=== PATIENT | male | born 1960 | race Caucasian/White ===

== ENCOUNTER 2018-12-12 11:49 | Inpatient (IN) | payer OTHER ==
[2018-12-12 13:02] VITALS: BMI 31.0
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
[2018-12-12] MEDS ORDERED: MAG HYDROX/AL HYDROX/SIMETH 30 ML UNIT-DOSE CUP PO PRN (15:06)
[2018-12-12] MEDS ORDERED: MENTHOL/PHENOL 1 EACH UD MM PRN (15:06)
[2018-12-12] MEDS ORDERED: IBUPROFEN 400 MG TABLET (FP) PO PRN (15:06)
[2018-12-12] MEDS ORDERED: BISMUTH SUBSALICYLATE 524 MG/30 ML UD PO PRN (15:06)
[2018-12-12] MEDS ORDERED: LORazepam 1 MG TABLET PO PRN (15:06)
[2018-12-12] MEDS ORDERED: MAGNESIUM HYDROX 2400MG/30ML ORAL SUSPENSION 30 ML CUP PO PRN (15:06)
[2018-12-12] MEDS ORDERED: guaiFENesin 200 MG/10 ML 10 ML UNIT-DOSE CUPS PO PRN (15:06)
[2018-12-12] MEDS ORDERED: MAGNESIUM CITRATE 300 ML BOTTLE PO PRN (15:06)
[2018-12-12] MEDS: POLYMYXIN B SULFATE/TMP 10 ML OPHTHALMIC SOLUTION OD SCH ×3 (16:00→23:00)
[2018-12-12] MEDS: GABAPENTIN 300 MG CAPSULE (FP) PO SCH ×2 (17:39→21:37)
[2018-12-12] MEDS: PHENYTOIN NA EXTENDED 100 MG CAPSULE (FP) PO SCH ×2 (17:39→21:37)
[2018-12-12] MEDS: LORazepam 2 MG TABLET PO SCH ×2 (17:40→23:01)
[2018-12-12] MEDS: NICOTINE 21 MG/24 HOURS TOPICAL PATCH TD SCH (17:42)
[2018-12-12] MEDS: NAPROXEN 500 MG TABLET (FP) PO SCH (21:37)
[2018-12-12] MEDS: THIAMINE HCL 100 MG TABLET (FP) PO SCH (21:37)
[2018-12-13] MEDS: POLYMYXIN B SULFATE/TMP 10 ML OPHTHALMIC SOLUTION OD SCH ×8 (01:37→22:08)
[2018-12-13] MEDS: PHENYTOIN NA EXTENDED 100 MG CAPSULE (FP) PO SCH ×3 (05:08→22:07)
[2018-12-13] MEDS: LORazepam 2 MG TABLET PO SCH ×2 (05:08→10:37)
[2018-12-13] MEDS: GABAPENTIN 300 MG CAPSULE (FP) PO SCH ×3 (05:08→22:07)
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
[2018-12-13] MEDS: NICOTINE 21 MG/24 HOURS TOPICAL PATCH TD SCH (10:37)
[2018-12-13] MEDS: NAPROXEN 500 MG TABLET (FP) PO SCH ×2 (10:38→22:07)
[2018-12-13] MEDS: PRENATAL VITAMINS W/ FOLIC ACID TABLET (FP) PO SCH (10:38)
[2018-12-13] MEDS: PATIENT'S OWN MEDICATION (NON-FORMULARY) (Azithromycin [Azithromycin] 250 MG) PO SCH (10:38)
[2018-12-13 11:10] LABS: HEMATOCRIT 40.4 % (35.4-49); MCH 33.8 pg (25.7-33.7); MCHC 34.6 g/dl (32.0-35.9); MEAN CELL VOLUME 97.5 fl (80-96); MEAN PLT VOLUME 8.8 fl (7.5-11.1); PLATELET COUNT 228 K/MM3 (134-434); RBC 4.15 M/mm3 (4.00-5.60); RDW 14.5 % (11.9-15.9); WHITE BLOOD COUNT 6.1 K/mm3 (4.0-10.0)
[2018-12-13 11:27] LABS: ALBUMIN 3.7 g/dl (3.4-5.0); ALK PHOS 94 U/L (45-117); ANION GAP 7 MMOL/L (8-16); BILIRUBIN,TOTAL 0.6 mg/dL (0.2-1); BLOOD UREA NITROGEN 19 mg/dL (7-18); CALCIUM 9.1 mg/dL (8.5-10.1); CHLORIDE 109 mmol/L (98-107); CO2 24 mmol/L (21-32); GLUCOSE,RANDOM 122 mg/dL (74-106); POTASSIUM 4.2 mmol/L (3.5-5.1); SGOT/AST 39 U/L (15-37); SGPT/ALT 45 U/L (13-61); SODIUM 140 mmol/L (136-145); TOT PROT 7.2 g/dl (6.4-8.2)
--- NOTE | 2018-12-13 12:21 | PN ---
S CIWA - CIWA Score Nausea/Vomitin Muscle Tremors: 2 Anxiety: 2 Agitation: 2 Paroxysmal Sweats: 1-Minimal Palms Moist Orientation: 0-Oriented Tacttile Disturbances: 1-Very Mild Itch/Numbness Auditory Disturbances: 1-Very Mild Visual Disturbances: 0-None Headache: 2-Mild CIWA-Ar Total Score: 13 BHS Progress Note (SOAP) Subjective: alert,irritable,tremor,pain,pain in the body Objective: 12/13/18 12:20 Vital Signs Temperature 97.2 F L 12/13/18 09:54 Pulse Rate 75 12/13/18 09:54 Respiratory Rate 20 12/13/18 09:54 Blood Pressure 125/73 12/13/18 09:54 O2 Sat by Pulse Oximetry (%) 12/13/18 12:20 Laboratory Last Values WBC 6.1 K/mm3 (4.0-10.0) 12/13/18 06:30 RBC 4.15 M/mm3 (4.00-5.60) 12/13/18 06:30 Hgb 14.0 GM/dL (11.7-16.9) 12/13/18 06:30 Hct 40.4 % (35.4-49) 12/13/18 06:30 MCV 97.5 fl (80-96) H 12/13/18 06:30 MCH 33.8 pg (25.7-33.7) H 12/13/18 06:30 MCHC 34.6 g/dl (32.0-35.9) 12/13/18 06:30 RDW 14.5 % (11.9-15.9) 12/13/18 06:30 Plt Count 228 K/MM3 (134-434) 12/13/18 06:30 MPV 8.8 fl (7.5-11.1) 12/13/18 06:30 Sodium 140 mmol/L (136-145) 12/13/18 06:30 Potassium 4.2 mmol/L (3.5-5.1) 12/13/18 06:30 Chloride 109 mmol/L (98-107) H 12/13/18 06:30 Carbon Dioxide 24 mmol/L (21-32) 12/13/18 06:30 Anion Gap 7 MMOL/L (8-16) L 12/13/18 06:30 BUN 19 mg/dL (7-18) H 12/13/18 06:30 Creatinine 1.0 mg/dL (0.55-1.3) 12/13/18 06:30 Creat Clearance w eGFR 77.02 (>60) 12/13/18 06:30 Random Glucose 122 mg/dL (74-106) H 12/13/18 06:30 Calcium 9.1 mg/dL (8.5-10.1) 12/13/18 06:30 Total Bilirubin 0.6 mg/dL (0.2-1) 12/13/18 06:30 AST 39 U/L (15-37) H 12/13/18 06:30 ALT 45 U/L (13-61) 12/13/18 06:30 Alkaline Phosphatase 94 U/L (45-117) 12/13/18 06:30 Total Protein 7.2 g/dl (6.4-8.2) 12/13/18 06:30 Albumin 3.7 g/dl (3.4-5.0) 12/13/18 06:30 Phenytoin 1.9 ug/ml (10.0-20.0) L 12/13/18 06:30 RPR Titer Nonreactive (NONREACTIVE) 12/13/18 06:30 Assessment: 12/13/18 12:22 withdrawal symptom Plan: continue detox
[2018-12-13] MEDS ORDERED: PHENYTOIN NA EXTENDED 100 MG CAPSULE (FP) PO ONE (12:24)
[2018-12-13] MEDS: LORazepam 1 MG TABLET PO SCH ×2 (18:25→22:07)
[2018-12-13] MEDS: ALBUTEROL SO4 2.5/IPRATROPIUM 0.5 INH SOL 3 ML VIAL.NEB. NEB PRN (20:13)
--- NOTE | 2018-12-13 20:28 | PN ---
S Progress Note Note: Vital Signs Temperature 97.7 F 12/13/18 16:59 Pulse Rate 96 H 12/13/18 16:59 Respiratory Rate 18 12/13/18 16:59 Blood Pressure 149/75 12/13/18 16:59 O2 Sat by Pulse Oximetry (%) Patient reported to RN he's feeling short of breath with hx of COPD reported no meds on admission for his condition. DUO NEB ordered Patient Aox3 no respiratory distress or cyanosis full ROM, ambulating in the unit Patient tolerated neb continue to monitor
[2018-12-13] MEDS: MELATONIN 5 MG TABLETS PO PRN (22:07)
[2018-12-13] MEDS: THIAMINE HCL 100 MG TABLET (FP) PO SCH (22:07)
[2018-12-14] MEDS: POLYMYXIN B SULFATE/TMP 10 ML OPHTHALMIC SOLUTION OD SCH ×8 (05:37→22:37)
[2018-12-14] MEDS: GABAPENTIN 300 MG CAPSULE (FP) PO SCH ×3 (05:38→22:37)
[2018-12-14] MEDS: PHENYTOIN NA EXTENDED 100 MG CAPSULE (FP) PO SCH ×3 (05:39→22:37)
[2018-12-14] MEDS: LORazepam 1 MG TABLET PO SCH ×2 (05:39→10:20)
[2018-12-14] MEDS: NICOTINE 21 MG/24 HOURS TOPICAL PATCH TD SCH (10:19)
[2018-12-14] MEDS: PATIENT'S OWN MEDICATION (NON-FORMULARY) (Azithromycin [Azithromycin] 250 MG) PO SCH (10:19)
[2018-12-14] MEDS: NAPROXEN 500 MG TABLET (FP) PO SCH ×2 (10:20→22:37)
[2018-12-14] MEDS: PRENATAL VITAMINS W/ FOLIC ACID TABLET (FP) PO SCH (10:20)
[2018-12-14] MEDS ORDERED: PHENYTOIN NA EXTENDED 100 MG CAPSULE (FP) PO ONE (12:47)
--- NOTE | 2018-12-14 12:49 | PN ---
S CIWA - CIWA Score Nausea/Vomitin Muscle Tremors: 2 Anxiety: 2 Agitation: 2 Paroxysmal Sweats: 1-Minimal Palms Moist Orientation: 0-Oriented Tacttile Disturbances: 1-Very Mild Itch/Numbness Auditory Disturbances: 1-Very Mild Visual Disturbances: 0-None Headache: 2-Mild CIWA-Ar Total Score: 13 BHS Progress Note (SOAP) Subjective: alert,irritable,anxious,interrupted sleep,tremor Objective: 12/14/18 12:46 Vital Signs Temperature 98.7 F 12/14/18 09:37 Pulse Rate 86 12/14/18 09:37 Respiratory Rate 18 12/14/18 09:37 Blood Pressure 113/66 12/14/18 09:37 O2 Sat by Pulse Oximetry (%) Laboratory Last Values WBC 6.1 K/mm3 (4.0-10.0) 12/13/18 06:30 RBC 4.15 M/mm3 (4.00-5.60) 12/13/18 06:30 Hgb 14.0 GM/dL (11.7-16.9) 12/13/18 06:30 Hct 40.4 % (35.4-49) 12/13/18 06:30 MCV 97.5 fl (80-96) H 12/13/18 06:30 MCH 33.8 pg (25.7-33.7) H 12/13/18 06:30 MCHC 34.6 g/dl (32.0-35.9) 12/13/18 06:30 RDW 14.5 % (11.9-15.9) 12/13/18 06:30 Plt Count 228 K/MM3 (134-434) 12/13/18 06:30 MPV 8.8 fl (7.5-11.1) 12/13/18 06:30 Sodium 140 mmol/L (136-145) 12/13/18 06:30 Potassium 4.2 mmol/L (3.5-5.1) 12/13/18 06:30 Chloride 109 mmol/L (98-107) H 12/13/18 06:30 Carbon Dioxide 24 mmol/L (21-32) 12/13/18 06:30 Anion Gap 7 MMOL/L (8-16) L 12/13/18 06:30 BUN 19 mg/dL (7-18) H 12/13/18 06:30 Creatinine 1.0 mg/dL (0.55-1.3) 12/13/18 06:30 Creat Clearance w eGFR 77.02 (>60) 12/13/18 06:30 Random Glucose 122 mg/dL (74-106) H 12/13/18 06:30 Calcium 9.1 mg/dL (8.5-10.1) 12/13/18 06:30 Total Bilirubin 0.6 mg/dL (0.2-1) 12/13/18 06:30 AST 39 U/L (15-37) H 12/13/18 06:30 ALT 45 U/L (13-61) 12/13/18 06:30 Alkaline Phosphatase 94 U/L (45-117) 12/13/18 06:30 Total Protein 7.2 g/dl (6.4-8.2) 12/13/18 06:30 Albumin 3.7 g/dl (3.4-5.0) 12/13/18 06:30 Phenytoin 2.8 ug/ml (10.0-20.0) L 12/14/18 07:00 RPR Titer Nonreactive (NONREACTIVE) 12/13/18 06:30 12/14/18 12:48 dilantin is 2.8 will give dilantin 300 mgs po then 100 mgs po tid Assessment: 12/14/18 12:49 withdrawal symptom Plan: continue detox
[2018-12-14] MEDS: hydrOXYzine PAMOATE 25 MG CAPSULE (FP) PO PRN ×2 (14:23→22:39)
[2018-12-14] MEDS: METHOCARBAMOL 500 MG TABLET PO PRN ×2 (14:23→22:39)
[2018-12-14] MEDS ORDERED: LORazepam 0.5 MG TABLET PO PRN (17:00)
[2018-12-14] MEDS: LORazepam 0.5 MG TABLET PO SCH ×2 (17:35→22:37)
[2018-12-14] MEDS: THIAMINE HCL 100 MG TABLET (FP) PO SCH (22:37)
[2018-12-15] MEDS: POLYMYXIN B SULFATE/TMP 10 ML OPHTHALMIC SOLUTION OD SCH ×8 (01:09→22:05)
[2018-12-15] MEDS: LORazepam 0.5 MG TABLET PO SCH ×3 (05:12→17:31)
[2018-12-15] MEDS: GABAPENTIN 300 MG CAPSULE (FP) PO SCH ×3 (05:12→22:03)
[2018-12-15] MEDS: PHENYTOIN NA EXTENDED 100 MG CAPSULE (FP) PO SCH ×3 (05:12→22:03)
[2018-12-15] MEDS: PATIENT'S OWN MEDICATION (NON-FORMULARY) (Azithromycin [Azithromycin] 250 MG) PO SCH (10:08)
[2018-12-15] MEDS: PRENATAL VITAMINS W/ FOLIC ACID TABLET (FP) PO SCH (10:09)
[2018-12-15] MEDS: NICOTINE 21 MG/24 HOURS TOPICAL PATCH TD SCH (10:09)
[2018-12-15] MEDS: NAPROXEN 500 MG TABLET (FP) PO SCH ×2 (10:11→22:03)
--- NOTE | 2018-12-15 14:09 | PN ---
BHS Progress Note (SOAP) Subjective: Low back pain requesting lidocaine patch Objective: 12/15/18 14:07 A & O x 3 ambulating steadily with a cane not in acute distress Vital Signs Temperature 97.5 F L 12/15/18 13:22 Pulse Rate 92 H 12/15/18 13:22 Respiratory Rate 18 12/15/18 13:22 Blood Pressure 128/73 12/15/18 13:22 O2 Sat by Pulse Oximetry (%) Assessment: 12/15/18 14:08 withdrawal sx chronic back pain Plan: continue detox lidocaine patch for d/c in a.m
[2018-12-15] MEDS ORDERED: LIDOCAINE 5% TOPICAL PATCH TP SCH (14:15)
[2018-12-15] MEDS: ALBUTEROL SO4 2.5/IPRATROPIUM 0.5 INH SOL 3 ML VIAL.NEB. NEB PRN (17:37)
[2018-12-15] MEDS ORDERED: LIDOCAINE PATCH REMOVAL MC SCH (22:00)
[2018-12-15] MEDS: THIAMINE HCL 100 MG TABLET (FP) PO SCH (22:03)
[2018-12-15] MEDS: MELATONIN 5 MG TABLETS PO PRN (22:05)
[2018-12-16] MEDS: POLYMYXIN B SULFATE/TMP 10 ML OPHTHALMIC SOLUTION OD SCH ×3 (01:44→07:47)
[2018-12-16] MEDS: GABAPENTIN 300 MG CAPSULE (FP) PO SCH (05:16)
[2018-12-16] MEDS: PHENYTOIN NA EXTENDED 100 MG CAPSULE (FP) PO SCH (05:16)
[2018-12-16 06:16] VITALS: BP 125/80; PULSE 69; TEMP 96.6
--- NOTE | 2018-12-16 16:14 | DS ---
[facility] Detox Discharge Summary Admission Date: 12/12/18 Discharge Date: 12/16/18 - History Present History: Alcohol Dependence, Cannabis Dependence Additional Comments: Patient completed detox successfully and was discharged safely. Patient to follow up with his PCP within 1-2 weeks. Pertinent Past History: Alcohol dependence Cannabis dependence Hepatitis C COPD Nicotine dependence Seizure disorder - Physical Exam Results Vital Signs: Vital Signs Temperature 96.6 F L 12/16/18 06:00 Pulse Rate 69 12/16/18 06:00 Respiratory Rate 18 12/16/18 06:30 Blood Pressure 125/80 12/16/18 06:00 O2 Sat by Pulse Oximetry (%) Pertinent Admission Physical Exam Findings: Withdrawal symptoms Laboratory Tests 12/13/18 12/13/18 12/13/18 06:30 06:30 06:30 WBC 6.1 RBC 4.15 Hgb 14.0 Hct 40.4 MCV 97.5 H MCH 33.8 H MCHC 34.6 RDW 14.5 Plt Count 228 MPV 8.8 Sodium 140 Potassium 4.2 Chloride 109 H Carbon Dioxide 24 Anion Gap 7 L BUN 19 H Creatinine 1.0 Creat Clearance w eGFR 77.02 Random Glucose 122 H Calcium 9.1 Total Bilirubin 0.6 AST 39 H ALT 45 Alkaline Phosphatase 94 Total Protein 7.2 Albumin 3.7 Phenytoin 1.9 L RPR Titer 12/13/18 12/14/18 12/15/18 06:30 07:00 07:30 WBC RBC Hgb Hct MCV MCH MCHC RDW Plt Count MPV Sodium Potassium Chloride Carbon Dioxide Anion Gap BUN Creatinine Creat Clearance w eGFR Random Glucose Calcium Total Bilirubin AST ALT Alkaline Phosphatase Total Protein Albumin Phenytoin 2.8 L 4.0 L RPR Titer Nonreactive Labs reviewed - Treatment Hospital Course: Detox Protocol Followed, Detoxed Safely, Responded well, Discharged Condition Good - Medication Discharge Medications: Ambulatory Orders Azithromycin 250 mg PO DAILY 12/12/18 Gabapentin [Neurontin -] 300 mg PO Q8H 12/12/18 Ibuprofen [Motrin -] 400 mg PO Q6H PRN 12/12/18 Lamotrigine [Lamictal -] 50 mg PO HS 12/12/18 Naproxen 500 mg PO BID 12/12/18 Phenytoin Na Extended [Dilantin -] 100 mg PO Q8H 12/12/18 Polymyxin B Sulfate/Tmp [Polytrim Opthalmic Solution -] 1 drop OD Q3H 12/12/18 Quetiapine Fumarate [Seroquel -] 100 mg PO HS 12/12/18 Thiamine Mononitrate [Vitamin B-1] 100 mg PO DAILY 12/12/18 - Diagnosis (1) Alcohol dependence with uncomplicated withdrawal Status: Acute (2) Cannabis dependence Status: Chronic (3) Seizure Status: Chronic (4) COPD (chronic obstructive pulmonary disease) Status: Chronic (5) Hepatitis C Status: Chronic (6) Nicotine dependence Status: Chronic - AMA Did Patient Leave Against Medical Advice: No (F/U with PCP within 1-2 weeks)
== END 2018-12-16 10:00 | disposition home or self-care (01) | DRG 775 ==
LOC: YASAS 11:49 → Y6N 15:11
PROVIDERS: ADMIT Surgery; ATTEND Surgery
PROC: HZ2ZZZZ Detoxification Services for Substance Abuse Treatment (ICD-10-PCS; principal; 2018-12-12)
DX: F10.230 Alcohol dependence with withdrawal, uncomplicated (principal); F12.20 Cannabis dependence, uncomplicated; F17.213 Nicotine dependence, cigarettes, with withdrawal; F31.9 Bipolar disorder, unspecified; F25.9 Schizoaffective disorder, unspecified; F19.24 Other psychoactive substance dependence with psychoactive substance-induced mood disorder; F19.282 Other psychoactive substance dependence with psychoactive substance-induced sleep disorder; G40.909 Epilepsy, unspecified, not intractable, without status epilepticus; J44.9 Chronic obstructive pulmonary disease, unspecified; B18.2 Chronic viral hepatitis C; M54.5 Low back pain; R26.89 Other abnormalities of gait and mobility; Z99.89 Dependence on other enabling machines and devices; Z87.442 Personal history of urinary calculi; Z89.012 Acquired absence of left thumb; Z91.5 Personal history of self-harm; Z85.89 Personal history of malignant neoplasm of other organs and systems; Z59.0 Homelessness
CPT/HCPCS: 36415; 71046-TC-FY; 80053; 80185; 85027; 86593; 94640

== ENCOUNTER 2020-09-22 11:52 | Inpatient (IN) | payer OTHER ==
[2020-09-22 12:43] VITALS: BMI 30.2
[2020-09-22] MEDS ORDERED: LOPERAMIDE HCL 2 MG CAPSULE PO PRN (14:13)
[2020-09-22] MEDS ORDERED: MAG HYDROX/AL HYDROX/SIMETH 30 ML UNIT-DOSE CUP PO PRN (14:13)
[2020-09-22] MEDS ORDERED: NICOTINE POLACRILEX 2 MG GUM BC PRN (14:13)
[2020-09-22] MEDS ORDERED: P-EPHED 60MG/TRIPROLIDI 2.5MG TABLET PO PRN (14:13)
[2020-09-22] MEDS ORDERED: ACETAMINOPHEN 325 MG TABLET (FP) PO PRN (14:13)
[2020-09-22] MEDS ORDERED: guaiFENesin 200 MG/10 ML 10 ML UNIT-DOSE CUPS PO PRN (14:13)
[2020-09-22] MEDS ORDERED: MAGNESIUM CITRATE 300 ML BOTTLE PO PRN (14:13)
[2020-09-22] MEDS ORDERED: MAGNESIUM HYDROX 2400MG/30ML ORAL SUSPENSION 30 ML CUP PO PRN (14:13)
[2020-09-22] MEDS ORDERED: ALBUTEROL SO4 HFA INHALER IH PRN (14:15)
[2020-09-22 17:17] LABS: HEMATOCRIT 41.1 % (35.4-49); HEMOGLOBIN 13.7 GM/dL (11.7-16.9); MCH 33.2 pg (25.7-33.7); MCHC 33.5 g/dl (32.0-35.9); MEAN CELL VOLUME 99.4 fl (80-96); MEAN PLT VOLUME 9.1 fl (7.5-11.1); PLATELET COUNT 203 K/MM3 (134-434); RBC 4.14 M/mm3 (4.00-5.60); RDW 13.6 % (11.9-15.9)
[2020-09-22] MEDS: NICOTINE 21 MG/24 HOURS TOPICAL PATCH TD SCH (17:17)
[2020-09-22] MEDS: hydrOXYzine PAMOATE 25 MG CAPSULE (FP) PO SCH ×2 (17:17→21:59)
[2020-09-22 17:18] LABS: ALBUMIN 4.1 g/dl (3.4-5.0); BLOOD UREA NITROGEN 18.6 mg/dL (7-18)
[2020-09-22 17:21] LABS: CREATININE 0.9 mg/dL (0.55-1.3)
[2020-09-22 17:22] LABS: BILIRUBIN,TOTAL 0.6 mg/dL (0.2-1)
[2020-09-22 17:23] LABS: TOT PROT 7.7 g/dl (6.4-8.2)
[2020-09-22] MEDS ORDERED: ROSUVASTATIN CA 10 MG TABLET ONE (21:00)
[2020-09-22] MEDS: levETIRAcetam 500 MG TABLET (FP) PO SCH (21:57)
[2020-09-22] MEDS: GABAPENTIN 300 MG CAPSULE PO SCH (21:58)
[2020-09-22] MEDS: ROSUVASTATIN CA 20 MG TABLET PO SCH (21:58)
[2020-09-22] MEDS: BUDESONIDE/FORMETEROL FUMARATE 160/4.5 mcg INHALER IH SCH (21:58)
[2020-09-22] MEDS: MELATONIN 5 MG TABLETS PO SCH (21:58)
[2020-09-22] MEDS: PHENYTOIN NA EXTENDED 100 MG CAPSULE (FP) PO SCH (21:58)
[2020-09-22] MEDS: THIAMINE HCL 100 MG TABLET (FP) PO SCH (21:59)
[2020-09-23] MEDS: GABAPENTIN 300 MG CAPSULE PO SCH ×3 (06:29→21:06)
[2020-09-23] MEDS: PHENYTOIN NA EXTENDED 100 MG CAPSULE (FP) PO SCH ×3 (06:29→21:05)
[2020-09-23] MEDS: hydrOXYzine PAMOATE 25 MG CAPSULE (FP) PO SCH ×5 (06:29→21:06)
[2020-09-23] MEDS ORDERED: NICOTINE 7 MG/24 HOURS TOPICAL PATCH TD SCH (10:00)
[2020-09-23] MEDS: NICOTINE 21 MG/24 HOURS TOPICAL PATCH TD SCH (10:13)
[2020-09-23] MEDS: PRENATAL VITAMINS W/ FOLIC ACID TABLET (FP) PO SCH (10:13)
[2020-09-23] MEDS: levETIRAcetam 500 MG TABLET (FP) PO SCH ×2 (10:14→21:05)
[2020-09-23] MEDS: BUDESONIDE/FORMETEROL FUMARATE 160/4.5 mcg INHALER IH SCH ×2 (10:15→21:04)
[2020-09-23] MEDS ORDERED: ROSUVASTATIN CA 10 MG TABLET ONE (20:08)
[2020-09-23] MEDS: THIAMINE HCL 100 MG TABLET (FP) PO SCH (21:05)
[2020-09-23] MEDS: MELATONIN 5 MG TABLETS PO SCH (21:06)
[2020-09-23] MEDS: ROSUVASTATIN CA 20 MG TABLET PO SCH (21:07)
[2020-09-24] MEDS: hydrOXYzine PAMOATE 25 MG CAPSULE (FP) PO SCH ×5 (06:24→21:34)
[2020-09-24] MEDS: GABAPENTIN 300 MG CAPSULE PO SCH ×3 (06:24→21:34)
[2020-09-24] MEDS: PHENYTOIN NA EXTENDED 100 MG CAPSULE (FP) PO SCH ×3 (06:24→21:33)
[2020-09-24] MEDS: PRENATAL VITAMINS W/ FOLIC ACID TABLET (FP) PO SCH (09:35)
[2020-09-24] MEDS: BUDESONIDE/FORMETEROL FUMARATE 160/4.5 mcg INHALER IH SCH ×2 (09:35→21:32)
[2020-09-24] MEDS: levETIRAcetam 500 MG TABLET (FP) PO SCH ×2 (09:35→21:33)
[2020-09-24] MEDS: NICOTINE 21 MG/24 HOURS TOPICAL PATCH TD SCH (09:36)
[2020-09-24 10:57] LABS: SICKLE CELL SCREEN NEGATIVE (NEGATIVE)
[2020-09-24] MEDS: IBUPROFEN 400 MG TABLET (FP) PO PRN ×2 (13:05→21:35)
[2020-09-24 17:09] LABS: URINE APPEARANCE CLEAR; URINE BILIRUBIN NEGATIVE (NEGATIVE); URINE COLOR YELLOW; URINE GLUCOSE (UA) NEGATIVE (NEGATIVE); URINE KETONE NEGATIVE (NEGATIVE); URINE LEUK ESTERASE NEGATIVE (NEGATIVE); URINE NITRITE NEGATIVE (NEGATIVE); URINE PROTEIN NEGATIVE (NEGATIVE); URINE UROBILINOGEN 0.2 mg/dL (0.2-1.0)
[2020-09-24] MEDS ORDERED: ROSUVASTATIN CA 10 MG TABLET ONE (19:10)
[2020-09-24] MEDS: MELATONIN 5 MG TABLETS PO SCH (21:34)
[2020-09-24] MEDS: QUEtiapine FUMARATE 50 MG TABLET PO SCH (21:35)
[2020-09-24] MEDS: THIAMINE HCL 100 MG TABLET (FP) PO SCH (21:40)
[2020-09-24] MEDS: ROSUVASTATIN CA 20 MG TABLET PO SCH (21:40)
[2020-09-25] MEDS: PHENYTOIN NA EXTENDED 100 MG CAPSULE (FP) PO SCH ×3 (06:30→21:05)
[2020-09-25] MEDS: hydrOXYzine PAMOATE 25 MG CAPSULE (FP) PO SCH ×5 (06:30→21:05)
[2020-09-25] MEDS: GABAPENTIN 300 MG CAPSULE PO SCH ×3 (06:30→21:05)
[2020-09-25] MEDS: IBUPROFEN 400 MG TABLET (FP) PO PRN ×2 (06:31→21:06)
[2020-09-25] MEDS: levETIRAcetam 500 MG TABLET (FP) PO SCH ×2 (09:29→21:05)
[2020-09-25] MEDS: NICOTINE 21 MG/24 HOURS TOPICAL PATCH TD SCH (09:30)
[2020-09-25] MEDS: PRENATAL VITAMINS W/ FOLIC ACID TABLET (FP) PO SCH (09:30)
[2020-09-25] MEDS: BUDESONIDE/FORMETEROL FUMARATE 160/4.5 mcg INHALER IH SCH ×2 (09:31→21:04)
[2020-09-25] MEDS ORDERED: ROSUVASTATIN CA 10 MG TABLET ONE (19:21)
[2020-09-25] MEDS: MELATONIN 5 MG TABLETS PO SCH (21:05)
[2020-09-25] MEDS: ROSUVASTATIN CA 20 MG TABLET PO SCH (21:05)
[2020-09-25] MEDS: THIAMINE HCL 100 MG TABLET (FP) PO SCH (21:05)
[2020-09-25] MEDS: QUEtiapine FUMARATE 50 MG TABLET PO SCH (21:05)
[2020-09-26] MEDS: hydrOXYzine PAMOATE 25 MG CAPSULE (FP) PO SCH ×5 (06:16→21:03)
[2020-09-26] MEDS: GABAPENTIN 300 MG CAPSULE PO SCH ×3 (06:16→21:03)
[2020-09-26] MEDS: PHENYTOIN NA EXTENDED 100 MG CAPSULE (FP) PO SCH ×3 (06:16→21:05)
[2020-09-26 06:21] VITALS: TEMP 97.1
[2020-09-26] MEDS: PRENATAL VITAMINS W/ FOLIC ACID TABLET (FP) PO SCH (09:32)
[2020-09-26] MEDS: NICOTINE 21 MG/24 HOURS TOPICAL PATCH TD SCH (09:33)
[2020-09-26] MEDS: levETIRAcetam 500 MG TABLET (FP) PO SCH ×2 (09:33→21:04)
[2020-09-26] MEDS: BUDESONIDE/FORMETEROL FUMARATE 160/4.5 mcg INHALER IH SCH ×2 (09:34→21:03)
[2020-09-26] MEDS: IBUPROFEN 400 MG TABLET (FP) PO PRN ×2 (09:35→21:03)
[2020-09-26] MEDS ORDERED: ROSUVASTATIN CA 10 MG TABLET ONE (18:32)
[2020-09-26] MEDS: ROSUVASTATIN CA 20 MG TABLET PO SCH (21:04)
[2020-09-26] MEDS: QUEtiapine FUMARATE 50 MG TABLET PO SCH (21:05)
[2020-09-26] MEDS: THIAMINE HCL 100 MG TABLET (FP) PO SCH (21:05)
[2020-09-27] MEDS: MELATONIN 5 MG TABLETS PO SCH (00:18)
[2020-09-27] MEDS: PHENYTOIN NA EXTENDED 100 MG CAPSULE (FP) PO SCH (06:14)
[2020-09-27] MEDS: hydrOXYzine PAMOATE 25 MG CAPSULE (FP) PO SCH ×2 (06:14→09:15)
[2020-09-27] MEDS: GABAPENTIN 300 MG CAPSULE PO SCH (06:14)
[2020-09-27 06:46] VITALS: BP 107/71; PULSE 71
[2020-09-27] MEDS: PRENATAL VITAMINS W/ FOLIC ACID TABLET (FP) PO SCH (09:14)
[2020-09-27] MEDS: BUDESONIDE/FORMETEROL FUMARATE 160/4.5 mcg INHALER IH SCH (09:14)
[2020-09-27] MEDS: NICOTINE 21 MG/24 HOURS TOPICAL PATCH TD SCH (09:15)
[2020-09-27] MEDS: levETIRAcetam 500 MG TABLET (FP) PO SCH (09:15)
== END 2020-09-27 11:23 | disposition home or self-care (01) | DRG 772 ==
LOC: YASAS 11:52 → Y5N 15:07
PROVIDERS: ADMIT Allergy & Immunology; ATTEND Allergy & Immunology
PROC: HZ42ZZZ Group Counseling for Substance Abuse Treatment, Cognitive-Behavioral (ICD-10-PCS; principal; 2020-09-22)
DX: F10.20 Alcohol dependence, uncomplicated (principal); F12.20 Cannabis dependence, uncomplicated; F17.210 Nicotine dependence, cigarettes, uncomplicated; F20.0 Paranoid schizophrenia; F25.9 Schizoaffective disorder, unspecified; F31.9 Bipolar disorder, unspecified; F19.282 Other psychoactive substance dependence with psychoactive substance-induced sleep disorder; F19.24 Other psychoactive substance dependence with psychoactive substance-induced mood disorder; E78.00 Pure hypercholesterolemia, unspecified; J43.8 Other emphysema; J40 Bronchitis, not specified as acute or chronic; G40.909 Epilepsy, unspecified, not intractable, without status epilepticus; B18.2 Chronic viral hepatitis C; M25.522 Pain in left elbow; M25.422 Effusion, left elbow; Z89.012 Acquired absence of left thumb; Z99.89 Dependence on other enabling machines and devices; Z59.0 Homelessness; Z88.0 Allergy status to penicillin
CPT/HCPCS: 36415; 80053; 81003; 85027; 85660; 86780

== ENCOUNTER 2021-02-12 14:31 | Inpatient (IN) | payer OTHER ==
[2021-02-12 16:44] VITALS: BMI 30.2
[2021-02-12] MEDS ORDERED: chlordiazePOXIDE HCL 25 MG CAPSULE PO PRN (18:35)
[2021-02-12] MEDS ORDERED: ALBUTEROL SO4 HFA INHALER IH PRN (18:36)
[2021-02-12] MEDS: PHENYTOIN NA EXTENDED 100 MG CAPSULE (FP) PO SCH (23:20)
[2021-02-12] MEDS: levETIRAcetam 250 MG TABLET PO SCH (23:21)
[2021-02-12] MEDS: BUDESONIDE/FORMETEROL FUMARATE 160/4.5 mcg INHALER IH SCH (23:21)
[2021-02-12] MEDS: DIVALPROEX NA *ER* EXTEND REL 500 MG TABLET.SA (FP) PO SCH (23:21)
[2021-02-12] MEDS: ROSUVASTATIN CA 20 MG TABLET (FP) PO SCH (23:21)
[2021-02-12] MEDS: chlordiazePOXIDE HCL 25 MG CAPSULE PO SCH (23:30)
[2021-02-13] MEDS: PHENYTOIN NA EXTENDED 100 MG CAPSULE (FP) PO SCH ×3 (05:35→22:40)
[2021-02-13] MEDS: chlordiazePOXIDE HCL 25 MG CAPSULE PO SCH ×4 (05:35→22:43)
[2021-02-13] MEDS: FOLIC ACID 1 MG TABLET (FP) PO SCH (10:35)
[2021-02-13] MEDS: levETIRAcetam 250 MG TABLET PO SCH (10:35)
[2021-02-13] MEDS: BUDESONIDE/FORMETEROL FUMARATE 160/4.5 mcg INHALER IH SCH ×2 (10:35→22:42)
[2021-02-13] MEDS: PANTOPRAZOLE 40 MG TABLET PO SCH (10:35)
[2021-02-13] MEDS: DIVALPROEX NA *ER* EXTEND REL 500 MG TABLET.SA (FP) PO SCH ×2 (10:35→22:41)
[2021-02-13 12:57] LABS: CALCIUM 8.2 mg/dL (8.5-10.1)
[2021-02-13 12:58] LABS: BLOOD UREA NITROGEN 21.1 mg/dL (7-18)
[2021-02-13 13:01] LABS: CREATININE 0.7 mg/dL (0.55-1.3)
[2021-02-13] MEDS: ACETAMINOPHEN 325 MG TABLET (FP) PO PRN ×2 (14:09→21:27)
[2021-02-13] MEDS: levETIRAcetam 500 MG TABLET (FP) PO SCH (22:40)
[2021-02-13] MEDS: ROSUVASTATIN CA 20 MG TABLET (FP) PO SCH (22:42)
[2021-02-14] MEDS: ACETAMINOPHEN 325 MG TABLET (FP) PO PRN ×3 (03:40→22:40)
[2021-02-14] MEDS ORDERED: chlordiazePOXIDE HCL 25 MG CAPSULE PO SCH (05:00)
[2021-02-14] MEDS ORDERED: chlordiazePOXIDE HCL 25 MG CAPSULE ONE (05:12)
[2021-02-14] MEDS: PHENYTOIN NA EXTENDED 100 MG CAPSULE (FP) PO SCH ×3 (05:46→22:36)
[2021-02-14] MEDS ORDERED: chlordiazePOXIDE HCL 10 MG CAPSULE ONE ×3 (09:45→21:28)
[2021-02-14] MEDS ORDERED: chlordiazePOXIDE 5 MG CAPSULE ONE ×3 (09:45→21:28)
[2021-02-14] MEDS: levETIRAcetam 500 MG TABLET (FP) PO SCH ×2 (09:56→22:36)
[2021-02-14] MEDS: DIVALPROEX NA *ER* EXTEND REL 500 MG TABLET.SA (FP) PO SCH ×2 (09:56→22:38)
[2021-02-14] MEDS: PANTOPRAZOLE 40 MG TABLET PO SCH (09:56)
[2021-02-14] MEDS: FOLIC ACID 1 MG TABLET (FP) PO SCH (09:56)
[2021-02-14] MEDS: BUDESONIDE/FORMETEROL FUMARATE 160/4.5 mcg INHALER IH SCH ×2 (09:56→22:37)
[2021-02-14] MEDS: CHLORDIAZEPOXIDE 20 MG, CHLORDIAZEPOXIDE 5 MG PO SCH ×3 (10:02→22:36)
[2021-02-14] MEDS ORDERED: CYCLOBENZAPRINE HCL 10 MG TABLET (FP) PO PRN (10:50)
[2021-02-14] MEDS ORDERED: MASKS NR ONE (18:05)
[2021-02-14] MEDS: CALCIUM CARBONATE 650 MG TABLET PO SCH (22:38)
[2021-02-14] MEDS: ROSUVASTATIN CA 20 MG TABLET (FP) PO SCH (22:38)
[2021-02-15] MEDS ORDERED: chlordiazePOXIDE HCL 10 MG CAPSULE PO PRN
[2021-02-15] MEDS: PHENYTOIN NA EXTENDED 100 MG CAPSULE (FP) PO SCH (06:06)
[2021-02-15] MEDS: chlordiazePOXIDE HCL 10 MG CAPSULE PO SCH ×2 (06:06→10:39)
[2021-02-15 09:25] VITALS: BP 137/80; PULSE 84; TEMP 97.1
[2021-02-15] MEDS ORDERED: IBUPROFEN 400 MG TABLET (FP) PO PRN (09:50)
[2021-02-15 10:06] LABS: SARS-CoV-2 NAA Not Detected (Not Detected)
[2021-02-15] MEDS: CALCIUM CARBONATE 650 MG TABLET PO SCH (10:39)
[2021-02-15] MEDS: BUDESONIDE/FORMETEROL FUMARATE 160/4.5 mcg INHALER IH SCH (10:39)
[2021-02-15] MEDS: FOLIC ACID 1 MG TABLET (FP) PO SCH (10:39)
[2021-02-15] MEDS: levETIRAcetam 500 MG TABLET (FP) PO SCH (10:39)
[2021-02-15] MEDS: PANTOPRAZOLE 40 MG TABLET PO SCH (10:39)
[2021-02-15] MEDS: DIVALPROEX NA *ER* EXTEND REL 500 MG TABLET.SA (FP) PO SCH (10:39)
[2021-02-16] MEDS ORDERED: chlordiazePOXIDE HCL 10 MG CAPSULE PO SCH (05:00)
[2021-02-17] MEDS ORDERED: chlordiazePOXIDE HCL 10 MG CAPSULE PO ONE (05:00)
== END 2021-02-15 11:03 | disposition left against medical advice (07) | DRG 770 ==
LOC: YASAS 14:31 → Y3N 19:26
PROVIDERS: ADMIT Allergy & Immunology; ATTEND Allergy & Immunology
PROC: HZ2ZZZZ Detoxification Services for Substance Abuse Treatment (ICD-10-PCS; principal; 2021-02-12)
DX: F10.230 Alcohol dependence with withdrawal, uncomplicated (principal); F14.20 Cocaine dependence, uncomplicated; F12.20 Cannabis dependence, uncomplicated; F17.210 Nicotine dependence, cigarettes, uncomplicated; F19.282 Other psychoactive substance dependence with psychoactive substance-induced sleep disorder; F20.0 Paranoid schizophrenia; F19.24 Other psychoactive substance dependence with psychoactive substance-induced mood disorder; F31.9 Bipolar disorder, unspecified; E83.51 Hypocalcemia; J44.9 Chronic obstructive pulmonary disease, unspecified; R79.89 Other specified abnormal findings of blood chemistry; Z89.012 Acquired absence of left thumb; Z99.89 Dependence on other enabling machines and devices; Z88.0 Allergy status to penicillin; Z59.0 Homelessness
CPT/HCPCS: 36415; 80048; 80164; 80185; C9803; U0003; U0005

== ENCOUNTER 2021-04-21 15:43 | Inpatient (IN) | payer OTHER ==
[2021-04-21] MEDS ORDERED: MAGNESIUM HYDROX 2400MG/30ML ORAL SUSPENSION 30 ML CUP PO PRN (18:33)
[2021-04-21] MEDS ORDERED: MAGNESIUM CITRATE 300 ML BOTTLE PO PRN (18:33)
[2021-04-21] MEDS ORDERED: ACETAMINOPHEN 325 MG TABLET (FP) PO PRN ×2 (18:33)
[2021-04-21] MEDS ORDERED: ONDANSETRON *ODT* 4 MG TABLET SL PRN (18:33)
[2021-04-21] MEDS ORDERED: NICOTINE POLACRILEX 2 MG GUM BUC PRN (18:33)
[2021-04-21] MEDS ORDERED: MENTHOL/PHENOL 1 EACH UD MM PRN (18:33)
[2021-04-21] MEDS ORDERED: BISMUTH SUBSALICYLATE 524 MG/30 ML PO PRN (18:33)
[2021-04-21] MEDS ORDERED: MAG HYDROX/AL HYDROX/SIMETH 30 ML UNIT-DOSE CUP PO PRN (18:33)
[2021-04-21 20:46] VITALS: BMI 30.2
[2021-04-22] MEDS: THIAMINE HCL 100 MG TABLET (FP) PO SCH ×2 (06:47→22:26)
[2021-04-22] MEDS: MELATONIN 5 MG TABLETS PO SCH ×2 (06:47→22:27)
[2021-04-22] MEDS ORDERED: PNEUMOC 13-VAL CONJ-DIP CRM/PF 0.5 ML DISP.SYRIN IM ONE (09:00)
[2021-04-22] MEDS: NICOTINE 21 MG/24 HOURS TOPICAL PATCH TD SCH (10:08)
[2021-04-22] MEDS: PRENATAL VITAMINS W/ FOLIC ACID TABLET (FP) PO SCH (10:08)
[2021-04-22 10:31] LABS: HEMOGLOBIN 13.6 GM/dL (11.7-16.9); MCH 34.7 pg (25.7-33.7); MEAN CELL VOLUME 101.9 fl (80-96); MEAN PLT VOLUME 8.8 fl (7.5-11.1); PLATELET COUNT 190 10^3/uL (134-434); RBC 3.93 M/mm3 (4.00-5.60); RDW 14.4 % (11.9-15.9); WHITE BLOOD COUNT 4.2 K/mm3 (4.0-10.0)
[2021-04-22] MEDS ORDERED: diazePAM 5 MG TABLET PO ONE (11:07)
[2021-04-22 11:26] LABS: ALBUMIN 3.2 g/dl (3.4-5.0); CALCIUM 8.4 mg/dL (8.5-10.1)
[2021-04-22 11:27] LABS: BLOOD UREA NITROGEN 17.7 mg/dL (7-18)
[2021-04-22 11:30] LABS: CREATININE 0.8 mg/dL (0.55-1.3)
[2021-04-22 11:31] LABS: BILIRUBIN,TOTAL 0.3 mg/dL (0.2-1); TOT PROT 6.4 g/dl (6.4-8.2)
[2021-04-22 11:50] LABS: HIV INTERPRETATION NEGATIVE (NEGATIVE)
[2021-04-22] MEDS ORDERED: PNEUMOCOCCAL 23 VACCINE 0.5 ML VIAL IM ONE (12:00)
[2021-04-22] MEDS: IBUPROFEN 400 MG TABLET (FP) PO PRN (12:23)
[2021-04-22] MEDS ORDERED: ALBUTEROL SO4 HFA INHALER IH PRN (15:15)
[2021-04-22] MEDS: diazePAM 5 MG TABLET PO SCH ×2 (17:19→22:26)
[2021-04-22] MEDS: METHOCARBAMOL 500 MG TABLET PO PRN (17:20)
[2021-04-22] MEDS: levETIRAcetam 500 MG TABLET (FP) PO SCH (22:26)
[2021-04-22] MEDS: ATORVASTATIN CA 20 MG TABLET (FP) PO SCH (22:26)
[2021-04-22] MEDS: QUEtiapine FUMARATE 100 MG TABLET (FP) PO SCH (22:26)
[2021-04-22] MEDS: BUDESONIDE/FORMETEROL FUMARATE 160/4.5 mcg INHALER IH SCH (22:27)
[2021-04-23] MEDS: diazePAM 5 MG TABLET PO SCH ×4 (06:07→22:09)
[2021-04-23] MEDS: levETIRAcetam 500 MG TABLET (FP) PO SCH ×2 (10:13→21:32)
[2021-04-23] MEDS: PANTOPRAZOLE 40 MG TABLET PO SCH (10:13)
[2021-04-23] MEDS: PRENATAL VITAMINS W/ FOLIC ACID TABLET (FP) PO SCH (10:13)
[2021-04-23] MEDS: METHOCARBAMOL 500 MG TABLET PO PRN ×2 (10:15→17:18)
[2021-04-23] MEDS: LIDOCAINE 5% TOPICAL PATCH TP SCH (10:46)
[2021-04-23] MEDS: NICOTINE 21 MG/24 HOURS TOPICAL PATCH TD SCH (10:48)
[2021-04-23] MEDS: BUDESONIDE/FORMETEROL FUMARATE 160/4.5 mcg INHALER IH SCH ×2 (10:48→21:35)
[2021-04-23] MEDS ORDERED: NICOTINE 10 MG CARTRIDGE (INHALER) IH PRN (12:10)
[2021-04-23] MEDS: PHENYTOIN NA EXTENDED 100 MG CAPSULE (FP) PO SCH ×2 (15:46→21:32)
[2021-04-23] MEDS: ATORVASTATIN CA 20 MG TABLET (FP) PO SCH (21:31)
[2021-04-23] MEDS: QUEtiapine FUMARATE 100 MG TABLET (FP) PO SCH (21:32)
[2021-04-23] MEDS: THIAMINE HCL 100 MG TABLET (FP) PO SCH (21:32)
[2021-04-23] MEDS: LIDOCAINE PATCH REMOVAL MC SCH (21:33)
[2021-04-23] MEDS: MELATONIN 5 MG TABLETS PO SCH (21:33)
[2021-04-24] MEDS: diazePAM 5 MG TABLET PO SCH ×3 (06:08→22:14)
[2021-04-24] MEDS: PHENYTOIN NA EXTENDED 100 MG CAPSULE (FP) PO SCH ×3 (06:08→22:13)
[2021-04-24] MEDS: PRENATAL VITAMINS W/ FOLIC ACID TABLET (FP) PO SCH (10:05)
[2021-04-24] MEDS: LIDOCAINE 5% TOPICAL PATCH TP SCH (10:05)
[2021-04-24] MEDS: PANTOPRAZOLE 40 MG TABLET PO SCH (10:05)
[2021-04-24] MEDS: BUDESONIDE/FORMETEROL FUMARATE 160/4.5 mcg INHALER IH SCH ×2 (10:05→22:12)
[2021-04-24] MEDS: levETIRAcetam 500 MG TABLET (FP) PO SCH ×2 (10:05→22:13)
[2021-04-24] MEDS: NICOTINE 21 MG/24 HOURS TOPICAL PATCH TD SCH (10:05)
[2021-04-24] MEDS: diazePAM 5 MG TABLET PO PRN ×2 (10:06→16:57)
[2021-04-24] MEDS: METHOCARBAMOL 500 MG TABLET PO PRN ×3 (10:08→23:18)
[2021-04-24] MEDS: IBUPROFEN 400 MG TABLET (FP) PO PRN ×3 (10:09→23:17)
[2021-04-24] MEDS: ATORVASTATIN CA 20 MG TABLET (FP) PO SCH (22:13)
[2021-04-24] MEDS: THIAMINE HCL 100 MG TABLET (FP) PO SCH (22:13)
[2021-04-24] MEDS: QUEtiapine FUMARATE 100 MG TABLET (FP) PO SCH (22:13)
[2021-04-24] MEDS: MELATONIN 5 MG TABLETS PO SCH (22:13)
[2021-04-24] MEDS: LIDOCAINE PATCH REMOVAL MC SCH (23:31)
[2021-04-25] MEDS: PHENYTOIN NA EXTENDED 100 MG CAPSULE (FP) PO SCH ×3 (06:12→22:05)
[2021-04-25] MEDS: diazePAM 5 MG TABLET PO SCH ×2 (06:12→17:06)
[2021-04-25] MEDS: NICOTINE 21 MG/24 HOURS TOPICAL PATCH TD SCH (10:08)
[2021-04-25] MEDS: PRENATAL VITAMINS W/ FOLIC ACID TABLET (FP) PO SCH (10:12)
[2021-04-25] MEDS: levETIRAcetam 500 MG TABLET (FP) PO SCH ×2 (10:12→22:05)
[2021-04-25] MEDS: PANTOPRAZOLE 40 MG TABLET PO SCH (10:12)
[2021-04-25] MEDS: LIDOCAINE 5% TOPICAL PATCH TP SCH (10:12)
[2021-04-25] MEDS: BUDESONIDE/FORMETEROL FUMARATE 160/4.5 mcg INHALER IH SCH ×2 (10:13→22:04)
[2021-04-25] MEDS: diazePAM 5 MG TABLET PO PRN (10:13)
[2021-04-25] MEDS: METHOCARBAMOL 500 MG TABLET PO PRN ×2 (14:47→22:08)
[2021-04-25] MEDS: IBUPROFEN 400 MG TABLET (FP) PO PRN (17:09)
[2021-04-25] MEDS: ATORVASTATIN CA 20 MG TABLET (FP) PO SCH (22:05)
[2021-04-25] MEDS: LIDOCAINE PATCH REMOVAL MC SCH (22:05)
[2021-04-25] MEDS: MELATONIN 5 MG TABLETS PO SCH (22:05)
[2021-04-25] MEDS: QUEtiapine FUMARATE 100 MG TABLET (FP) PO SCH (22:05)
[2021-04-25] MEDS: THIAMINE HCL 100 MG TABLET (FP) PO SCH (22:06)
[2021-04-26] MEDS: PHENYTOIN NA EXTENDED 100 MG CAPSULE (FP) PO SCH ×2 (05:32→13:00)
[2021-04-26] MEDS ORDERED: diazePAM 5 MG TABLET PO ONE (06:00)
[2021-04-26] MEDS: levETIRAcetam 500 MG TABLET (FP) PO SCH (09:01)
[2021-04-26] MEDS: BUDESONIDE/FORMETEROL FUMARATE 160/4.5 mcg INHALER IH SCH (09:01)
[2021-04-26] MEDS: LIDOCAINE 5% TOPICAL PATCH TP SCH (09:01)
[2021-04-26] MEDS: PANTOPRAZOLE 40 MG TABLET PO SCH (09:02)
[2021-04-26] MEDS: PRENATAL VITAMINS W/ FOLIC ACID TABLET (FP) PO SCH (09:02)
[2021-04-26] MEDS: NICOTINE 21 MG/24 HOURS TOPICAL PATCH TD SCH (09:02)
[2021-04-26 13:02] VITALS: BP 127/77; PULSE 85; TEMP 97.3
== END 2021-04-26 14:16 | disposition home or self-care (01) | DRG 775 ==
LOC: YASAS 15:43 → Y3N 22:42
PROVIDERS: ADMIT Allergy & Immunology; ATTEND Allergy & Immunology
PROC: HZ2ZZZZ Detoxification Services for Substance Abuse Treatment (ICD-10-PCS; principal; 2021-04-21)
DX: F10.230 Alcohol dependence with withdrawal, uncomplicated (principal); F12.20 Cannabis dependence, uncomplicated; F17.210 Nicotine dependence, cigarettes, uncomplicated; F19.282 Other psychoactive substance dependence with psychoactive substance-induced sleep disorder; F41.9 Anxiety disorder, unspecified; F31.9 Bipolar disorder, unspecified; F20.0 Paranoid schizophrenia; F25.9 Schizoaffective disorder, unspecified; J42 Unspecified chronic bronchitis; J45.909 Unspecified asthma, uncomplicated; B18.2 Chronic viral hepatitis C; G47.00 Insomnia, unspecified; R29.6 Repeated falls; G40.909 Epilepsy, unspecified, not intractable, without status epilepticus; R26.2 Difficulty in walking, not elsewhere classified; Z99.89 Dependence on other enabling machines and devices; Z85.89 Personal history of malignant neoplasm of other organs and systems; Z89.012 Acquired absence of left thumb; Z88.0 Allergy status to penicillin; Z86.11 Personal history of tuberculosis; Z56.0 Unemployment, unspecified; Z59.0 Homelessness
CPT/HCPCS: 36415; 71046-TC-FY; 80053; 80177; 80185; 82962; 85027; 86780; 87389; 90732; 93005; 93010; C9803; G0009; U0003; U0005

== ENCOUNTER 2021-12-28 16:31 | Inpatient (IN) | payer OTHER ==
[2021-12-28 16:52] VITALS: BMI 29.0
[2021-12-28] MEDS ORDERED: ALBUTEROL SO4 HFA INHALER IH PRN (17:19)
[2021-12-28] MEDS ORDERED: guaiFENesin 200 MG/10 ML 10 ML UNIT-DOSE CUPS PO PRN (17:21)
[2021-12-28] MEDS ORDERED: LOPERAMIDE HCL 2 MG CAPSULE PO PRN (17:21)
[2021-12-28] MEDS ORDERED: DICYCLOMINE HCL 10 MG CAPSULE PO PRN (17:21)
[2021-12-28] MEDS ORDERED: MAG HYDROX/AL HYDROX/SIMETH 30 ML UNIT-DOSE CUP PO PRN (17:21)
[2021-12-28] MEDS ORDERED: ACETAMINOPHEN 325 MG TABLET (FP) PO PRN ×2 (17:21)
[2021-12-28] MEDS ORDERED: IBUPROFEN 400 MG TABLET (FP) PO PRN (17:21)
[2021-12-28] MEDS ORDERED: METHOCARBAMOL 500 MG TABLET PO PRN (17:21)
[2021-12-28] MEDS ORDERED: MAGNESIUM HYDROX 2400MG/30ML ORAL SUSPENSION 30 ML CUP PO PRN (17:21)
[2021-12-28] MEDS ORDERED: hydrOXYzine PAMOATE 25 MG CAPSULE (FP) PO PRN (17:21)
[2021-12-28] MEDS ORDERED: BISMUTH SUBSALICYLATE 524 MG/30 ML PO PRN (17:21)
[2021-12-28] MEDS ORDERED: ONDANSETRON *ODT* 4 MG TABLET SL PRN (17:21)
[2021-12-28] MEDS ORDERED: MELATONIN 5 MG TABLETS PO PRN (17:21)
[2021-12-28] MEDS ORDERED: MAGNESIUM CITRATE 300 ML BOTTLE PO PRN (17:21)
[2021-12-28] MEDS ORDERED: MENTHOL/PHENOL 1 EACH UD MM PRN (17:21)
[2021-12-28] MEDS ORDERED: chlordiazePOXIDE HCL 25 MG CAPSULE PO PRN (17:25)
[2021-12-28] MEDS: chlordiazePOXIDE HCL 25 MG CAPSULE PO SCH ×2 (17:43→22:15)
[2021-12-28] MEDS: levETIRAcetam 500 MG TABLET (FP) PO SCH (22:15)
[2021-12-28] MEDS: THIAMINE HCL 100 MG TABLET (FP) PO SCH (22:15)
[2021-12-28] MEDS: BUDESONIDE/FORMETEROL FUMARATE 160/4.5 mcg INHALER IH SCH (22:16)
[2021-12-29] MEDS: chlordiazePOXIDE HCL 25 MG CAPSULE PO SCH ×4 (06:30→22:05)
[2021-12-29 10:04] LABS: HEMATOCRIT 39.7 % (35.4-49); HEMOGLOBIN 13.4 GM/dL (11.7-16.9); MCH 33.5 pg (25.7-33.7); MCHC 33.8 g/dl (32.0-35.9); MEAN CELL VOLUME 99.2 fl (80-96); MEAN PLT VOLUME 8.2 fl (7.5-11.1); PLATELET COUNT 146 10^3/uL (134-434); RDW 14.3 % (11.9-15.9); WHITE BLOOD COUNT 3.3 K/mm3 (4.0-10.0)
[2021-12-29 10:05] LABS: CALCIUM 8.5 mg/dL (8.5-10.1)
[2021-12-29 10:06] LABS: ALBUMIN 2.8 g/dl (3.4-5.0)
[2021-12-29 10:09] LABS: CREATININE 0.8 mg/dL (0.55-1.3)
[2021-12-29 10:10] LABS: TOT PROT 5.8 g/dl (6.4-8.2)
[2021-12-29 10:11] LABS: BILIRUBIN,TOTAL 0.2 mg/dL (0.2-1)
[2021-12-29] MEDS: levETIRAcetam 500 MG TABLET (FP) PO SCH ×2 (10:24→22:05)
[2021-12-29] MEDS: PRENATAL VITAMINS W/ FOLIC ACID TABLET (FP) PO SCH (10:24)
[2021-12-29] MEDS: BUDESONIDE/FORMETEROL FUMARATE 160/4.5 mcg INHALER IH SCH ×2 (10:24→22:08)
[2021-12-29] MEDS: NICOTINE 7 MG/24 HOURS TOPICAL PATCH TD SCH (10:24)
[2021-12-29] MEDS: PHENYTOIN NA EXTENDED 100 MG CAPSULE (FP) PO SCH ×3 (10:53→22:05)
[2021-12-29] MEDS ORDERED: FLU VACC QS2021-22(6MOS UP)/PF 60 MCG/0.5 ML SYRINGE IM ONE (12:00)
[2021-12-29] MEDS ORDERED: QUEtiapine FUMARATE 100 MG TABLET (FP) PO SCH (22:00)
[2021-12-29] MEDS ORDERED: ROSUVASTATIN CA 20 MG TABLET PO SCH (22:00)
[2021-12-29] MEDS: THIAMINE HCL 100 MG TABLET (FP) PO SCH (22:05)
[2021-12-30] MEDS: PHENYTOIN NA EXTENDED 100 MG CAPSULE (FP) PO SCH (06:10)
[2021-12-30] MEDS: chlordiazePOXIDE HCL 25 MG CAPSULE PO SCH ×2 (06:10→11:06)
[2021-12-30 10:13] LABS: SARS-CoV-2 NAA Not Detected (Not Detected)
[2021-12-30] MEDS: levETIRAcetam 500 MG TABLET (FP) PO SCH (11:05)
[2021-12-30] MEDS: BUDESONIDE/FORMETEROL FUMARATE 160/4.5 mcg INHALER IH SCH (11:05)
[2021-12-30] MEDS: NICOTINE 7 MG/24 HOURS TOPICAL PATCH TD SCH (11:05)
[2021-12-30] MEDS: PRENATAL VITAMINS W/ FOLIC ACID TABLET (FP) PO SCH (11:05)
[2021-12-30 11:40] VITALS: BP 131/86; PULSE 84; TEMP 97.4
[2021-12-31] MEDS ORDERED: chlordiazePOXIDE HCL 10 MG CAPSULE PO PRN
[2021-12-31] MEDS ORDERED: chlordiazePOXIDE HCL 10 MG CAPSULE PO SCH (05:00)
[2022-01-01 00:07] LABS: SARS-CoV-2 NAA Not Detected (Not Detected)
[2022-01-01] MEDS ORDERED: chlordiazePOXIDE HCL 10 MG CAPSULE PO SCH (05:00)
[2022-01-02] MEDS ORDERED: chlordiazePOXIDE HCL 10 MG CAPSULE PO ONE (05:00)
== END 2021-12-30 11:25 | disposition left against medical advice (07) | DRG 770 ==
LOC: YASAS 16:31 → Y6N 18:17
PROVIDERS: ADMIT Allergy & Immunology; ATTEND Allergy & Immunology
PROC: HZ2ZZZZ Detoxification Services for Substance Abuse Treatment (ICD-10-PCS; principal; 2021-12-28)
DX: F10.230 Alcohol dependence with withdrawal, uncomplicated (principal); F12.20 Cannabis dependence, uncomplicated; F17.210 Nicotine dependence, cigarettes, uncomplicated; F20.0 Paranoid schizophrenia; F25.9 Schizoaffective disorder, unspecified; F19.24 Other psychoactive substance dependence with psychoactive substance-induced mood disorder; F19.282 Other psychoactive substance dependence with psychoactive substance-induced sleep disorder; J44.9 Chronic obstructive pulmonary disease, unspecified; B18.2 Chronic viral hepatitis C; G47.00 Insomnia, unspecified; G40.909 Epilepsy, unspecified, not intractable, without status epilepticus; G89.29 Other chronic pain; Z89.012 Acquired absence of left thumb; Z88.0 Allergy status to penicillin; Z86.11 Personal history of tuberculosis; Z91.51 Personal history of suicidal behavior; Z85.89 Personal history of malignant neoplasm of other organs and systems; Z56.0 Unemployment, unspecified; Z59.00 Homelessness unspecified
CPT/HCPCS: 36415; 71046-TC-FY; 80053; 80177; 80185; 85027; 86780; 87811; 90686; C9803-CS; G0008; U0003; U0005

== ENCOUNTER 2022-01-22 18:37 | Inpatient (IN) | payer OTHER ==
[2022-01-22] MEDS ORDERED: DICYCLOMINE HCL 10 MG CAPSULE PO PRN (19:44)
[2022-01-22] MEDS ORDERED: MAGNESIUM CITRATE 300 ML BOTTLE PO PRN (19:44)
[2022-01-22] MEDS ORDERED: IBUPROFEN 400 MG TABLET (FP) PO PRN (19:44)
[2022-01-22] MEDS ORDERED: MAG HYDROX/AL HYDROX/SIMETH 30 ML UNIT-DOSE CUP PO PRN (19:44)
[2022-01-22] MEDS ORDERED: MAGNESIUM HYDROX 2400MG/30ML ORAL SUSPENSION 30 ML CUP PO PRN (19:44)
[2022-01-22] MEDS ORDERED: ACETAMINOPHEN 325 MG TABLET (FP) PO PRN ×2 (19:44)
[2022-01-22] MEDS ORDERED: hydrOXYzine PAMOATE 25 MG CAPSULE (FP) PO PRN (19:44)
[2022-01-22] MEDS ORDERED: LOPERAMIDE HCL 2 MG CAPSULE PO PRN (19:44)
[2022-01-22] MEDS ORDERED: NICOTINE 10 MG CARTRIDGE (INHALER) IH PRN (19:44)
[2022-01-22] MEDS ORDERED: BENZOCAINE/MENTHOL (CHLORASEPTIC ) LOZENGE MM PRN (19:44)
[2022-01-22] MEDS ORDERED: ONDANSETRON *ODT* 4 MG TABLET SL PRN (19:44)
[2022-01-22] MEDS ORDERED: MELATONIN 5 MG TABLETS PO PRN (19:44)
[2022-01-22] MEDS ORDERED: BISMUTH SUBSALICYLATE 524 MG/30 ML PO PRN (19:44)
[2022-01-22] MEDS ORDERED: METHOCARBAMOL 500 MG TABLET PO PRN (19:44)
[2022-01-22] MEDS ORDERED: chlordiazePOXIDE HCL 25 MG CAPSULE PO ONE (19:47)
[2022-01-22] MEDS ORDERED: ALBUTEROL SO4 HFA INHALER IH PRN (19:47)
[2022-01-22] MEDS ORDERED: chlordiazePOXIDE HCL 25 MG CAPSULE PO PRN (19:47)
[2022-01-22] MEDS ORDERED: chlordiazePOXIDE HCL 25 MG CAPSULE ONE (20:08)
[2022-01-22] MEDS: levETIRAcetam 500 MG TABLET (FP) PO SCH (22:40)
[2022-01-22] MEDS: BUDESONIDE/FORMETEROL FUMARATE 160/4.5 mcg INHALER IH SCH (22:41)
[2022-01-22] MEDS: GABAPENTIN 300 MG CAPSULE PO SCH (22:41)
[2022-01-22] MEDS: THIAMINE HCL 100 MG TABLET (FP) PO SCH (22:42)
[2022-01-22] MEDS: chlordiazePOXIDE HCL 25 MG CAPSULE PO SCH (22:46)
[2022-01-23] MEDS: chlordiazePOXIDE HCL 25 MG CAPSULE PO SCH ×4 (05:30→22:14)
[2022-01-23] MEDS: GABAPENTIN 300 MG CAPSULE PO SCH ×3 (05:30→22:13)
[2022-01-23] MEDS: BUDESONIDE/FORMETEROL FUMARATE 160/4.5 mcg INHALER IH SCH ×2 (10:37→22:16)
[2022-01-23] MEDS: PRENATAL VITAMINS W/ FOLIC ACID TABLET (FP) PO SCH (10:38)
[2022-01-23] MEDS: levETIRAcetam 500 MG TABLET (FP) PO SCH ×2 (10:38→22:13)
[2022-01-23] MEDS: DIVALPROEX NA *ER* EXTEND REL 500 MG TABLET.SA (FP) PO SCH ×2 (10:38→11:33)
[2022-01-23] MEDS ORDERED: DIVALPROEX NA *ER* EXTEND REL 500 MG TABLET.SA (FP) PO SCH ×2 (15:15→22:00)
[2022-01-23] MEDS: THIAMINE HCL 100 MG TABLET (FP) PO SCH (22:13)
[2022-01-24] MEDS: GABAPENTIN 300 MG CAPSULE PO SCH ×2 (05:04→15:09)
[2022-01-24] MEDS: chlordiazePOXIDE HCL 25 MG CAPSULE PO SCH ×3 (05:04→19:11)
[2022-01-24] MEDS: PRENATAL VITAMINS W/ FOLIC ACID TABLET (FP) PO SCH (10:21)
[2022-01-24] MEDS: BUDESONIDE/FORMETEROL FUMARATE 160/4.5 mcg INHALER IH SCH (10:21)
[2022-01-24] MEDS: levETIRAcetam 500 MG TABLET (FP) PO SCH (10:21)
[2022-01-24 12:35] LABS: HEMATOCRIT 39.6 % (35.4-49); HEMOGLOBIN 13.5 GM/dL (11.7-16.9); MCH 33.7 pg (25.7-33.7); MEAN PLT VOLUME 9.3 fl (7.5-11.1); PLATELET COUNT 140 10^3/uL (134-434); RDW 13.5 % (11.9-15.9); WHITE BLOOD COUNT 3.4 K/mm3 (4.0-10.0)
[2022-01-24 13:23] LABS: ALBUMIN 3.4 g/dl (3.4-5.0); BLOOD UREA NITROGEN 26.7 mg/dL (7-18)
[2022-01-24 13:26] LABS: CREATININE 0.8 mg/dL (0.55-1.3)
[2022-01-24 13:27] LABS: TOT PROT 6.6 g/dl (6.4-8.2)
[2022-01-24 13:30] LABS: BILIRUBIN,TOTAL 0.2 mg/dL (0.2-1)
[2022-01-24 17:56] VITALS: BP 117/58; PULSE 72
[2022-01-24 22:33] VITALS: TEMP 97.1
[2022-01-25] MEDS ORDERED: chlordiazePOXIDE HCL 10 MG CAPSULE PO PRN
[2022-01-25] MEDS ORDERED: chlordiazePOXIDE HCL 10 MG CAPSULE PO SCH (05:00)
[2022-01-25 08:35] LABS: SARS-CoV-2 NAA Not Detected
[2022-01-26] MEDS ORDERED: chlordiazePOXIDE HCL 10 MG CAPSULE PO SCH (05:00)
[2022-01-26 13:46] LABS: HIV INTERPRETATION NEGATIVE (NEGATIVE)
[2022-01-27] MEDS ORDERED: chlordiazePOXIDE HCL 10 MG CAPSULE PO ONE (05:00)
== END 2022-01-24 20:52 | disposition left against medical advice (07) | DRG 770 ==
LOC: YASAS 18:37 → Y6N 20:50
PROVIDERS: ADMIT Allergy & Immunology; ATTEND Allergy & Immunology
PROC: HZ2ZZZZ Detoxification Services for Substance Abuse Treatment (ICD-10-PCS; principal; 2022-01-22)
DX: F10.230 Alcohol dependence with withdrawal, uncomplicated (principal); F12.20 Cannabis dependence, uncomplicated; F17.210 Nicotine dependence, cigarettes, uncomplicated; F19.282 Other psychoactive substance dependence with psychoactive substance-induced sleep disorder; F19.24 Other psychoactive substance dependence with psychoactive substance-induced mood disorder; F20.0 Paranoid schizophrenia; F31.9 Bipolar disorder, unspecified; F41.9 Anxiety disorder, unspecified; G47.00 Insomnia, unspecified; J44.9 Chronic obstructive pulmonary disease, unspecified; R29.6 Repeated falls; R76.11 Nonspecific reaction to tuberculin skin test without active tuberculosis; B18.2 Chronic viral hepatitis C; Z99.89 Dependence on other enabling machines and devices; Z85.028 Personal history of other malignant neoplasm of stomach; Z89.012 Acquired absence of left thumb; Z88.0 Allergy status to penicillin
CPT/HCPCS: 36415; 80053; 80164; 85027; 86780; 87389; 87811; C9803-CS; U0003; U0005

== ENCOUNTER 2022-04-08 18:57 | Inpatient (IN) | payer OTHER ==
[2022-04-09 01:56] VITALS: BMI 31.0
[2022-04-09] MEDS ORDERED: MAG HYDROX/AL HYDROX/SIMETH 30 ML UNIT-DOSE CUP PO PRN (02:00)
[2022-04-09] MEDS ORDERED: MAGNESIUM CITRATE 300 ML BOTTLE PO PRN (02:00)
[2022-04-09] MEDS ORDERED: NICOTINE 10 MG CARTRIDGE (INHALER) IH PRN (02:00)
[2022-04-09] MEDS ORDERED: MAGNESIUM HYDROX 2400MG/30ML ORAL SUSPENSION 30 ML CUP PO PRN (02:00)
[2022-04-09] MEDS ORDERED: IBUPROFEN 600 MG TABLET (FP) PO PRN (02:00)
[2022-04-09] MEDS ORDERED: IBUPROFEN 400 MG TABLET (FP) PO PRN (02:00)
[2022-04-09] MEDS ORDERED: BISMUTH SUBSALICYLATE 524 MG/30 ML PO PRN (02:00)
[2022-04-09] MEDS ORDERED: LORazepam 1 MG TABLET PO PRN (02:00)
[2022-04-09] MEDS ORDERED: LOPERAMIDE HCL 2 MG CAPSULE PO PRN (02:00)
[2022-04-09] MEDS ORDERED: ACETAMINOPHEN 325 MG TABLET (FP) PO PRN (02:00)
[2022-04-09] MEDS ORDERED: ONDANSETRON *ODT* 4 MG TABLET SL PRN (02:00)
[2022-04-09] MEDS ORDERED: DICYCLOMINE HCL 10 MG CAPSULE PO PRN (02:00)
[2022-04-09] MEDS ORDERED: BENZOCAINE/MENTHOL (CHLORASEPTIC ) LOZENGE MM PRN (02:00)
[2022-04-09] MEDS ORDERED: METHOCARBAMOL 500 MG TABLET PO PRN (02:00)
[2022-04-09] MEDS: LORazepam 1 MG TABLET PO SCH ×5 (05:32→22:39)
[2022-04-09] MEDS: NICOTINE 21 MG/24 HOURS TOPICAL PATCH TD SCH (10:57)
[2022-04-09] MEDS: PRENATAL VITAMINS W/ FOLIC ACID TABLET (FP) PO SCH (10:57)
[2022-04-09] MEDS ORDERED: MELATONIN 5 MG TABLETS PO SCH (22:00)
[2022-04-09] MEDS ORDERED: levETIRAcetam 500 MG TABLET (FP) PO SCH (22:00)
[2022-04-09] MEDS ORDERED: QUEtiapine FUMARATE 50 MG TABLET PO SCH (22:00)
[2022-04-09] MEDS: BUDESONIDE/FORMETEROL FUMARATE 160/4.5 mcg INHALER IH SCH (22:37)
[2022-04-09] MEDS: GABAPENTIN 300 MG CAPSULE PO SCH (22:38)
[2022-04-09] MEDS: levETIRAcetam 500 MG TABLET (FP) PO SCH (22:38)
[2022-04-09] MEDS: THIAMINE HCL 100 MG TABLET (FP) PO SCH (22:39)
[2022-04-09] MEDS: ROSUVASTATIN CA 20 MG TABLET PO SCH (23:21)
[2022-04-10] MEDS: LORazepam 1 MG TABLET PO SCH ×4 (05:32→22:27)
[2022-04-10] MEDS: GABAPENTIN 300 MG CAPSULE PO SCH ×3 (05:32→22:27)
[2022-04-10] MEDS: PANTOPRAZOLE 40 MG TABLET PO SCH (07:03)
[2022-04-10] MEDS: BUDESONIDE/FORMETEROL FUMARATE 160/4.5 mcg INHALER IH SCH ×2 (10:55→22:28)
[2022-04-10] MEDS: NICOTINE 21 MG/24 HOURS TOPICAL PATCH TD SCH (10:55)
[2022-04-10] MEDS: levETIRAcetam 500 MG TABLET (FP) PO SCH ×2 (10:56→22:27)
[2022-04-10] MEDS: PRENATAL VITAMINS W/ FOLIC ACID TABLET (FP) PO SCH (10:56)
[2022-04-10] MEDS: ACETAMINOPHEN 325 MG TABLET (FP) PO PRN ×2 (10:58→22:28)
[2022-04-10 11:21] LABS: HEMATOCRIT 40.4 % (35.4-49); HEMOGLOBIN 13.4 GM/dL (11.7-16.9); MCH 32.3 pg (25.7-33.7); MCHC 33.1 g/dl (32.0-35.9); MEAN CELL VOLUME 97.7 fl (80-96); MEAN PLT VOLUME 8.4 fl (7.5-11.1); PLATELET COUNT 165 10^3/uL (134-434); RBC 4.14 M/mm3 (4.00-5.60); RDW 14.7 % (11.9-15.9); WHITE BLOOD COUNT 4.2 K/mm3 (4.0-10.0)
[2022-04-10 12:23] LABS: ALBUMIN 3.3 g/dl (3.4-5.0); BLOOD UREA NITROGEN 17.1 mg/dL (7-18); CALCIUM 8.9 mg/dL (8.5-10.1)
[2022-04-10 12:26] LABS: CREATININE 0.7 mg/dL (0.55-1.3)
[2022-04-10 12:28] LABS: BILIRUBIN,TOTAL 0.4 mg/dL (0.2-1); TOT PROT 6.6 g/dl (6.4-8.2)
[2022-04-10] MEDS: THIAMINE HCL 100 MG TABLET (FP) PO SCH (22:27)
[2022-04-10] MEDS: ROSUVASTATIN CA 20 MG TABLET PO SCH (22:27)
[2022-04-10] MEDS: QUEtiapine FUMARATE 50 MG TABLET PO PRN (22:29)
[2022-04-11] MEDS ORDERED: LORazepam 0.5 MG TABLET PO PRN
[2022-04-11] MEDS: PANTOPRAZOLE 40 MG TABLET PO SCH (06:17)
[2022-04-11] MEDS: LORazepam 0.5 MG TABLET PO SCH ×4 (06:17→22:05)
[2022-04-11] MEDS: GABAPENTIN 300 MG CAPSULE PO SCH ×3 (06:17→22:07)
[2022-04-11] MEDS: PRENATAL VITAMINS W/ FOLIC ACID TABLET (FP) PO SCH (10:37)
[2022-04-11] MEDS: levETIRAcetam 500 MG TABLET (FP) PO SCH ×2 (10:37→22:06)
[2022-04-11] MEDS: BUDESONIDE/FORMETEROL FUMARATE 160/4.5 mcg INHALER IH SCH ×2 (10:38→22:05)
[2022-04-11] MEDS: NICOTINE 21 MG/24 HOURS TOPICAL PATCH TD SCH (10:40)
[2022-04-11] MEDS: THIAMINE HCL 100 MG TABLET (FP) PO SCH (22:07)
[2022-04-11] MEDS: QUEtiapine FUMARATE 50 MG TABLET PO PRN (22:07)
[2022-04-11] MEDS: ROSUVASTATIN CA 20 MG TABLET PO SCH (22:07)
[2022-04-12] MEDS ORDERED: LORazepam 0.5 MG TABLET PO ONE (05:00)
[2022-04-12] MEDS: GABAPENTIN 300 MG CAPSULE PO SCH (05:44)
[2022-04-12] MEDS: ACETAMINOPHEN 325 MG TABLET (FP) PO PRN (05:44)
[2022-04-12] MEDS: PANTOPRAZOLE 40 MG TABLET PO SCH (06:48)
[2022-04-12 09:43] VITALS: BP 116/63; PULSE 74; TEMP 97.7
[2022-04-12] MEDS: NICOTINE 21 MG/24 HOURS TOPICAL PATCH TD SCH (10:25)
[2022-04-12] MEDS: BUDESONIDE/FORMETEROL FUMARATE 160/4.5 mcg INHALER IH SCH (10:26)
[2022-04-12] MEDS: levETIRAcetam 500 MG TABLET (FP) PO SCH (10:26)
[2022-04-12] MEDS: PRENATAL VITAMINS W/ FOLIC ACID TABLET (FP) PO SCH (10:26)
== END 2022-04-12 12:48 | disposition home or self-care (01) | DRG 775 ==
LOC: YASAS 18:57 → Y3N 04-09 02:17
PROVIDERS: ADMIT Allergy & Immunology; ATTEND Surgery
PROC: HZ2ZZZZ Detoxification Services for Substance Abuse Treatment (ICD-10-PCS; principal; 2022-04-09)
DX: F10.230 Alcohol dependence with withdrawal, uncomplicated (principal); F12.20 Cannabis dependence, uncomplicated; F17.210 Nicotine dependence, cigarettes, uncomplicated; F20.0 Paranoid schizophrenia; F41.9 Anxiety disorder, unspecified; G40.909 Epilepsy, unspecified, not intractable, without status epilepticus; J44.9 Chronic obstructive pulmonary disease, unspecified; J45.40 Moderate persistent asthma, uncomplicated; R76.11 Nonspecific reaction to tuberculin skin test without active tuberculosis; Z62.810 Personal history of physical and sexual abuse in childhood; Z88.0 Allergy status to penicillin; Z59.00 Homelessness unspecified; Z56.0 Unemployment, unspecified
CPT/HCPCS: 36415; 80053; 85027; 86780; 87811; C9803-CS; U0003; U0005

== ENCOUNTER 2022-05-04 16:38 | Inpatient (IN) | payer OTHER ==
[2022-05-04 18:44] VITALS: BMI 30.8
[2022-05-04] MEDS ORDERED: ACETAMINOPHEN 325 MG TABLET (FP) PO PRN ×2 (21:16)
[2022-05-04] MEDS ORDERED: IBUPROFEN 600 MG TABLET (FP) PO PRN (21:16)
[2022-05-04] MEDS ORDERED: LORazepam 1 MG TABLET PO PRN (21:16)
[2022-05-04] MEDS ORDERED: NICOTINE POLACRILEX 2 MG GUM BUC PRN (21:16)
[2022-05-04] MEDS ORDERED: BISMUTH SUBSALICYLATE 524 MG/30 ML PO PRN (21:16)
[2022-05-04] MEDS ORDERED: MAGNESIUM HYDROX 2400MG/30ML ORAL SUSPENSION 30 ML CUP PO PRN (21:16)
[2022-05-04] MEDS ORDERED: DICYCLOMINE HCL 10 MG CAPSULE PO PRN (21:16)
[2022-05-04] MEDS ORDERED: IBUPROFEN 400 MG TABLET (FP) PO PRN (21:16)
[2022-05-04] MEDS ORDERED: LOPERAMIDE HCL 2 MG CAPSULE PO PRN (21:16)
[2022-05-04] MEDS ORDERED: guaiFENesin 200 MG/10 ML 10 ML UNIT-DOSE CUPS PO PRN (21:16)
[2022-05-04] MEDS ORDERED: MAGNESIUM CITRATE 300 ML BOTTLE PO PRN (21:16)
[2022-05-04] MEDS ORDERED: METHOCARBAMOL 500 MG TABLET PO PRN (21:16)
[2022-05-04] MEDS ORDERED: BENZOCAINE/MENTHOL (CHLORASEPTIC ) LOZENGE MM PRN (21:16)
[2022-05-04] MEDS ORDERED: P-EPHED 60MG/TRIPROLIDI 2.5MG TABLET PO PRN (21:16)
[2022-05-04] MEDS ORDERED: MAG HYDROX/AL HYDROX/SIMETH 30 ML UNIT-DOSE CUP PO PRN (21:16)
[2022-05-04] MEDS ORDERED: ONDANSETRON *ODT* 4 MG TABLET SL PRN (21:16)
[2022-05-04] MEDS ORDERED: LORazepam 1 MG TABLET ONE (21:25)
[2022-05-04] MEDS ORDERED: ALBUTEROL SO4 HFA INHALER IH PRN (22:38)
[2022-05-04] MEDS ORDERED: hydrOXYzine PAMOATE 25 MG CAPSULE (FP) PO ONE (23:46)
[2022-05-04] MEDS ORDERED: LORazepam 2 MG TABLET ONE (23:46)
[2022-05-04] MEDS: THIAMINE HCL 100 MG TABLET (FP) PO SCH (23:53)
[2022-05-04] MEDS: LORazepam 2 MG TABLET PO SCH (23:53)
[2022-05-04] MEDS: hydrOXYzine PAMOATE 25 MG CAPSULE (FP) PO SCH (23:53)
[2022-05-04] MEDS: MELATONIN 5 MG TABLETS PO SCH (23:53)
[2022-05-05] MEDS ORDERED: LORazepam 2 MG TABLET ONE ×2 (06:23→10:10)
[2022-05-05] MEDS: LORazepam 2 MG TABLET PO SCH ×4 (06:24→22:42)
[2022-05-05] MEDS: hydrOXYzine PAMOATE 25 MG CAPSULE (FP) PO SCH ×5 (06:24→22:42)
[2022-05-05] MEDS ORDERED: hydrOXYzine PAMOATE 25 MG CAPSULE (FP) PO ONE (10:13)
[2022-05-05] MEDS: PRENATAL VITAMINS W/ FOLIC ACID TABLET (FP) PO SCH (10:14)
[2022-05-05] MEDS: NICOTINE 21 MG/24 HOURS TOPICAL PATCH TD SCH (11:57)
[2022-05-05 12:00] LABS: HEMATOCRIT 39.1 % (35.4-49); HEMOGLOBIN 13.3 GM/dL (11.7-16.9); MCH 32.4 pg (25.7-33.7); MEAN CELL VOLUME 95.5 fl (80-96); MEAN PLT VOLUME 8.1 fl (7.5-11.1); PLATELET COUNT 144 10^3/uL (134-434); RBC 4.09 M/mm3 (4.00-5.60); RDW 14.9 % (11.9-15.9); WHITE BLOOD COUNT 3.8 K/mm3 (4.0-10.0)
[2022-05-05 12:15] LABS: CALCIUM 8.5 mg/dL (8.5-10.1)
[2022-05-05 12:17] LABS: BLOOD UREA NITROGEN 17.2 mg/dL (7-18)
[2022-05-05 12:19] LABS: CREATININE 0.8 mg/dL (0.55-1.3)
[2022-05-05 12:21] LABS: BILIRUBIN,TOTAL 0.4 mg/dL (0.2-1); TOT PROT 5.9 g/dl (6.4-8.2)
[2022-05-05] MEDS: QUEtiapine FUMARATE 100 MG TABLET (FP) PO SCH (22:42)
[2022-05-05] MEDS: MELATONIN 5 MG TABLETS PO SCH (22:42)
[2022-05-05] MEDS: THIAMINE HCL 100 MG TABLET (FP) PO SCH (22:42)
[2022-05-06] MEDS: LORazepam 1 MG TABLET PO SCH ×4 (04:56→22:03)
[2022-05-06] MEDS: hydrOXYzine PAMOATE 25 MG CAPSULE (FP) PO SCH ×5 (07:59→22:03)
[2022-05-06] MEDS: PANTOPRAZOLE 40 MG TABLET PO SCH (10:39)
[2022-05-06] MEDS: BUDESONIDE/FORMETEROL FUMARATE 160/4.5 mcg INHALER IH SCH ×2 (10:39→22:04)
[2022-05-06] MEDS: NICOTINE 21 MG/24 HOURS TOPICAL PATCH TD SCH (10:40)
[2022-05-06] MEDS: PRENATAL VITAMINS W/ FOLIC ACID TABLET (FP) PO SCH (10:42)
[2022-05-06] MEDS: levETIRAcetam 250 MG TABLET PO SCH ×2 (12:30→22:03)
[2022-05-06] MEDS: QUEtiapine FUMARATE 100 MG TABLET (FP) PO SCH (22:03)
[2022-05-06] MEDS: MELATONIN 5 MG TABLETS PO SCH (22:03)
[2022-05-06] MEDS: ROSUVASTATIN CA 20 MG TABLET PO SCH (22:03)
[2022-05-06] MEDS: THIAMINE HCL 100 MG TABLET (FP) PO SCH (22:04)
[2022-05-07] MEDS ORDERED: LORazepam 0.5 MG TABLET PO PRN
[2022-05-07] MEDS: hydrOXYzine PAMOATE 25 MG CAPSULE (FP) PO SCH ×5 (05:19→22:21)
[2022-05-07] MEDS: LORazepam 0.5 MG TABLET PO SCH ×4 (05:19→22:19)
[2022-05-07] MEDS: PANTOPRAZOLE 40 MG TABLET PO SCH (10:35)
[2022-05-07] MEDS: NICOTINE 21 MG/24 HOURS TOPICAL PATCH TD SCH (10:35)
[2022-05-07] MEDS: BUDESONIDE/FORMETEROL FUMARATE 160/4.5 mcg INHALER IH SCH ×2 (10:36→22:19)
[2022-05-07] MEDS: PRENATAL VITAMINS W/ FOLIC ACID TABLET (FP) PO SCH (10:36)
[2022-05-07] MEDS: levETIRAcetam 250 MG TABLET PO SCH ×2 (10:36→22:21)
[2022-05-07] MEDS: QUEtiapine FUMARATE 100 MG TABLET (FP) PO SCH (22:20)
[2022-05-07] MEDS: MELATONIN 5 MG TABLETS PO SCH (22:20)
[2022-05-07] MEDS: ROSUVASTATIN CA 20 MG TABLET PO SCH (22:21)
[2022-05-07] MEDS: THIAMINE HCL 100 MG TABLET (FP) PO SCH (22:21)
[2022-05-08] MEDS ORDERED: LORazepam 0.5 MG TABLET PO ONE (05:00)
[2022-05-08] MEDS: hydrOXYzine PAMOATE 25 MG CAPSULE (FP) PO SCH ×2 (06:08→10:16)
[2022-05-08] MEDS: BUDESONIDE/FORMETEROL FUMARATE 160/4.5 mcg INHALER IH SCH (10:16)
[2022-05-08] MEDS: PRENATAL VITAMINS W/ FOLIC ACID TABLET (FP) PO SCH (10:16)
[2022-05-08] MEDS: levETIRAcetam 250 MG TABLET PO SCH (10:16)
[2022-05-08] MEDS: PANTOPRAZOLE 40 MG TABLET PO SCH (10:16)
[2022-05-08] MEDS: NICOTINE 21 MG/24 HOURS TOPICAL PATCH TD SCH (10:16)
[2022-05-08 12:46] VITALS: BP 109/66; PULSE 75; RESP 17; TEMP 97.3
== END 2022-05-08 12:55 | disposition home or self-care (01) | DRG 774 ==
LOC: YASAS 16:38 → Y3N 05-05 11:26
PROVIDERS: ADMIT Allergy & Immunology; ATTEND Surgery
PROC: HZ2ZZZZ Detoxification Services for Substance Abuse Treatment (ICD-10-PCS; principal; 2022-05-05)
DX: F10.230 Alcohol dependence with withdrawal, uncomplicated (principal); F14.20 Cocaine dependence, uncomplicated; F12.20 Cannabis dependence, uncomplicated; F17.210 Nicotine dependence, cigarettes, uncomplicated; F19.282 Other psychoactive substance dependence with psychoactive substance-induced sleep disorder; F19.24 Other psychoactive substance dependence with psychoactive substance-induced mood disorder; F20.0 Paranoid schizophrenia; F41.9 Anxiety disorder, unspecified; G40.909 Epilepsy, unspecified, not intractable, without status epilepticus; J44.9 Chronic obstructive pulmonary disease, unspecified; J45.20 Mild intermittent asthma, uncomplicated; E78.5 Hyperlipidemia, unspecified; Z62.810 Personal history of physical and sexual abuse in childhood; Z86.19 Personal history of other infectious and parasitic diseases; Z59.00 Homelessness unspecified; Z56.0 Unemployment, unspecified; Z89.012 Acquired absence of left thumb; Z85.028 Personal history of other malignant neoplasm of stomach
CPT/HCPCS: 36415; 80053; 80177; 85027; 86780; 87811; C9803-CS; U0003; U0005

== ENCOUNTER 2022-07-13 14:18 | Inpatient (IN) | payer OTHER ==
[2022-07-13 15:45] VITALS: BMI 30.1
[2022-07-13] MEDS ORDERED: BISMUTH SUBSALICYLATE 524 MG/30 ML PO PRN (17:00)
[2022-07-13] MEDS ORDERED: chlordiazePOXIDE HCL 25 MG CAPSULE PO PRN (17:00)
[2022-07-13] MEDS ORDERED: MAGNESIUM HYDROX 2400MG/30ML ORAL SUSPENSION 30 ML CUP PO PRN (17:00)
[2022-07-13] MEDS ORDERED: MAGNESIUM CITRATE 300 ML BOTTLE PO PRN (17:00)
[2022-07-13] MEDS ORDERED: DICYCLOMINE HCL 10 MG CAPSULE PO PRN (17:00)
[2022-07-13] MEDS ORDERED: IBUPROFEN 600 MG TABLET (FP) PO PRN (17:00)
[2022-07-13] MEDS ORDERED: hydrOXYzine PAMOATE 25 MG CAPSULE (FP) PO PRN (17:00)
[2022-07-13] MEDS ORDERED: IBUPROFEN 400 MG TABLET (FP) PO PRN (17:00)
[2022-07-13] MEDS ORDERED: ONDANSETRON *ODT* 4 MG TABLET SL PRN (17:00)
[2022-07-13] MEDS ORDERED: NICOTINE 10 MG CARTRIDGE (INHALER) IH PRN (17:00)
[2022-07-13] MEDS ORDERED: MAG HYDROX/AL HYDROX/SIMETH 30 ML UNIT-DOSE CUP PO PRN (17:00)
[2022-07-13] MEDS ORDERED: METHOCARBAMOL 500 MG TABLET PO PRN (17:00)
[2022-07-13] MEDS ORDERED: BENZOCAINE/MENTHOL (CHLORASEPTIC ) LOZENGE MM PRN (17:00)
[2022-07-13] MEDS ORDERED: LOPERAMIDE HCL 2 MG CAPSULE PO PRN (17:00)
[2022-07-13] MEDS ORDERED: ACETAMINOPHEN 325 MG TABLET (FP) PO PRN ×2 (17:00)
[2022-07-13] MEDS ORDERED: chlordiazePOXIDE HCL 25 MG CAPSULE ONE (18:03)
[2022-07-13] MEDS ORDERED: hydrOXYzine PAMOATE 25 MG CAPSULE (FP) PO ONE (18:03)
[2022-07-13] MEDS ORDERED: ALBUTEROL SO4 HFA INHALER IH PRN (18:17)
[2022-07-13] MEDS: DOXYCYCLINE HYCLATE 100 MG TABLET PO SCH (19:33)
[2022-07-13] MEDS: levETIRAcetam 500 MG TABLET (FP) PO SCH (22:36)
[2022-07-13] MEDS: ROSUVASTATIN CA 20 MG TABLET PO SCH (22:37)
[2022-07-13] MEDS: MELATONIN 5 MG TABLETS PO SCH (22:37)
[2022-07-13] MEDS: BUDESONIDE/FORMETEROL FUMARATE 160/4.5 mcg INHALER IH SCH (22:37)
[2022-07-13] MEDS: THIAMINE HCL 100 MG TABLET (FP) PO SCH (22:37)
[2022-07-13] MEDS: chlordiazePOXIDE HCL 25 MG CAPSULE PO SCH (22:39)
[2022-07-14] MEDS: chlordiazePOXIDE HCL 25 MG CAPSULE PO SCH ×4 (05:52→22:17)
[2022-07-14] MEDS: PANTOPRAZOLE 40 MG TABLET PO SCH (07:10)
[2022-07-14] MEDS: levETIRAcetam 500 MG TABLET (FP) PO SCH ×2 (11:14→22:15)
[2022-07-14] MEDS: PRENATAL VITAMINS W/ FOLIC ACID TABLET (FP) PO SCH (11:15)
[2022-07-14] MEDS: DOXYCYCLINE HYCLATE 100 MG TABLET PO SCH ×2 (11:15→17:56)
[2022-07-14] MEDS: NICOTINE 7 MG/24 HOURS TOPICAL PATCH TD SCH (11:15)
[2022-07-14] MEDS: BUDESONIDE/FORMETEROL FUMARATE 160/4.5 mcg INHALER IH SCH ×2 (11:18→22:16)
[2022-07-14 14:20] LABS: HEMATOCRIT 38.6 % (35.4-49); HEMOGLOBIN 12.7 GM/dL (11.7-16.9); MCH 31.4 pg (25.7-33.7); MCHC 32.9 g/dl (32.0-35.9); MEAN CELL VOLUME 95.4 fl (80-96); MEAN PLT VOLUME 8.8 fl (7.5-11.1); PLATELET COUNT 151 10^3/uL (134-434); RBC 4.05 M/mm3 (4.00-5.60); RDW 15.4 % (11.9-15.9); WHITE BLOOD COUNT 3.9 K/mm3 (4.0-10.0)
[2022-07-14 16:17] LABS: HIV INTERPRETATION NEGATIVE (NEGATIVE)
[2022-07-14 16:21] LABS: BLOOD UREA NITROGEN 24.9 mg/dL (7-18); CALCIUM 8.5 mg/dL (8.5-10.1)
[2022-07-14 16:26] LABS: BILIRUBIN,TOTAL 0.7 mg/dL (0.2-1); TOT PROT 5.8 g/dl (6.4-8.2)
[2022-07-14 16:29] LABS: CREATININE 0.9 mg/dL (0.55-1.3)
[2022-07-14] MEDS ORDERED: QUEtiapine FUMARATE 100 MG TABLET (FP) PO SCH (22:00)
[2022-07-14] MEDS: ROSUVASTATIN CA 20 MG TABLET PO SCH (22:15)
[2022-07-14] MEDS: MELATONIN 5 MG TABLETS PO SCH (22:15)
[2022-07-14] MEDS: THIAMINE HCL 100 MG TABLET (FP) PO SCH (22:15)
[2022-07-15] MEDS: chlordiazePOXIDE HCL 25 MG CAPSULE PO SCH ×2 (06:24→10:59)
[2022-07-15] MEDS: PANTOPRAZOLE 40 MG TABLET PO SCH (06:26)
[2022-07-15 09:18] VITALS: BP 95/53; PULSE 64; RESP 16; TEMP 98.9
[2022-07-15] MEDS: PRENATAL VITAMINS W/ FOLIC ACID TABLET (FP) PO SCH (10:23)
[2022-07-15] MEDS: BUDESONIDE/FORMETEROL FUMARATE 160/4.5 mcg INHALER IH SCH (10:23)
[2022-07-15] MEDS: levETIRAcetam 500 MG TABLET (FP) PO SCH (10:24)
[2022-07-15] MEDS: DOXYCYCLINE HYCLATE 100 MG TABLET PO SCH (10:24)
[2022-07-15] MEDS: NICOTINE 7 MG/24 HOURS TOPICAL PATCH TD SCH (10:25)
[2022-07-16] MEDS ORDERED: chlordiazePOXIDE HCL 10 MG CAPSULE PO PRN
[2022-07-16] MEDS ORDERED: chlordiazePOXIDE HCL 10 MG CAPSULE PO SCH (05:00)
[2022-07-17] MEDS ORDERED: chlordiazePOXIDE HCL 10 MG CAPSULE PO SCH (05:00)
[2022-07-18] MEDS ORDERED: chlordiazePOXIDE HCL 10 MG CAPSULE PO ONE (05:00)
== END 2022-07-15 11:03 | disposition home or self-care (01) | DRG 774 ==
LOC: YASAS 14:18 → Y3N 17:47
PROVIDERS: ADMIT Allergy & Immunology; ATTEND Surgery
PROC: HZ2ZZZZ Detoxification Services for Substance Abuse Treatment (ICD-10-PCS; principal; 2022-07-13)
DX: F10.230 Alcohol dependence with withdrawal, uncomplicated (principal); F14.10 Cocaine abuse, uncomplicated; F12.10 Cannabis abuse, uncomplicated; F17.210 Nicotine dependence, cigarettes, uncomplicated; F25.9 Schizoaffective disorder, unspecified; F41.9 Anxiety disorder, unspecified; F32.A Depression, unspecified; F19.282 Other psychoactive substance dependence with psychoactive substance-induced sleep disorder; F19.24 Other psychoactive substance dependence with psychoactive substance-induced mood disorder; J43.9 Emphysema, unspecified; J40 Bronchitis, not specified as acute or chronic; M54.50 Low back pain, unspecified; G89.29 Other chronic pain; Z62.810 Personal history of physical and sexual abuse in childhood; Z86.19 Personal history of other infectious and parasitic diseases; Z87.19 Personal history of other diseases of the digestive system; Z86.69 Personal history of other diseases of the nervous system and sense organs; Z85.028 Personal history of other malignant neoplasm of stomach; Z88.0 Allergy status to penicillin; Z56.0 Unemployment, unspecified; Z59.00 Homelessness unspecified
CPT/HCPCS: 36415; 80053; 85027; 86780; 87389; 87811; C9803-CS; U0003; U0005

== ENCOUNTER 2022-08-15 12:31 | Inpatient (IN) | payer OTHER ==
[2022-08-15 13:35] VITALS: BMI 29.0
[2022-08-15] MEDS ORDERED: IBUPROFEN 400 MG TABLET (FP) PO PRN (15:10)
[2022-08-15] MEDS ORDERED: BENZOCAINE/MENTHOL (CHLORASEPTIC ) LOZENGE MM PRN (15:10)
[2022-08-15] MEDS ORDERED: POLYETHYLENE GLYCOL (HEALTHYLAX) 3350 17 GM PACKET PO PRN (15:10)
[2022-08-15] MEDS ORDERED: LOPERAMIDE HCL 2 MG CAPSULE PO PRN (15:10)
[2022-08-15] MEDS ORDERED: BISMUTH SUBSALICYLATE 524 MG/30 ML PO PRN (15:10)
[2022-08-15] MEDS ORDERED: NALOXONE HCL (KLOXXADO) 8 MG SPRAY NS PRN (15:10)
[2022-08-15] MEDS ORDERED: DICYCLOMINE HCL 10 MG CAPSULE PO PRN (15:10)
[2022-08-15] MEDS ORDERED: MAG HYDROX/AL HYDROX/SIMETH 30 ML UNIT-DOSE CUP PO PRN (15:10)
[2022-08-15] MEDS ORDERED: ACETAMINOPHEN 325 MG TABLET (FP) PO PRN ×2 (15:10)
[2022-08-15] MEDS ORDERED: ONDANSETRON *ODT* 4 MG TABLET SL PRN (15:10)
[2022-08-15] MEDS ORDERED: IBUPROFEN 600 MG TABLET (FP) PO PRN (15:10)
[2022-08-15] MEDS ORDERED: MAGNESIUM HYDROX 2400MG/30ML ORAL SUSPENSION 30 ML CUP PO PRN (15:10)
[2022-08-15] MEDS ORDERED: ALBUTEROL SO4 HFA INHALER IH PRN (15:13)
[2022-08-15] MEDS ORDERED: chlordiazePOXIDE HCL 25 MG CAPSULE PO ONE (15:23)
[2022-08-15] MEDS: PRENATAL VITAMINS W/ FOLIC ACID TABLET (FP) PO SCH (15:53)
[2022-08-15] MEDS: PANTOPRAZOLE 40 MG TABLET PO SCH (15:53)
[2022-08-15] MEDS: NICOTINE 21 MG/24 HOURS TOPICAL PATCH TD SCH (15:56)
[2022-08-15] MEDS: chlordiazePOXIDE HCL 25 MG CAPSULE PO SCH ×2 (17:35→22:06)
[2022-08-15] MEDS ORDERED: MELATONIN 5 MG TABLETS PO SCH (22:00)
[2022-08-15] MEDS: levETIRAcetam 250 MG TABLET PO SCH (22:06)
[2022-08-15] MEDS: THIAMINE HCL 100 MG TABLET (FP) PO SCH (22:06)
[2022-08-15] MEDS: ROSUVASTATIN CA 20 MG TABLET PO SCH (22:06)
[2022-08-15] MEDS: BUDESONIDE/FORMETEROL FUMARATE 160/4.5 mcg INHALER IH SCH (22:10)
[2022-08-16] MEDS: chlordiazePOXIDE HCL 25 MG CAPSULE PO SCH ×4 (05:24→22:10)
[2022-08-16] MEDS: METHOCARBAMOL 500 MG TABLET PO PRN (10:20)
[2022-08-16] MEDS: PANTOPRAZOLE 40 MG TABLET PO SCH (10:20)
[2022-08-16] MEDS: levETIRAcetam 250 MG TABLET PO SCH ×2 (10:20→22:10)
[2022-08-16] MEDS: PRENATAL VITAMINS W/ FOLIC ACID TABLET (FP) PO SCH (10:20)
[2022-08-16] MEDS: BUDESONIDE/FORMETEROL FUMARATE 160/4.5 mcg INHALER IH SCH ×2 (10:21→22:10)
[2022-08-16] MEDS: NICOTINE 21 MG/24 HOURS TOPICAL PATCH TD SCH (10:21)
[2022-08-16] MEDS: NICOTINE 10 MG CARTRIDGE (INHALER) IH PRN (10:22)
[2022-08-16 12:19] LABS: HEMATOCRIT 39.4 % (35.4-49); HEMOGLOBIN 12.6 GM/dL (11.7-16.9); MCH 30.6 pg (25.7-33.7); MEAN CELL VOLUME 95.5 fl (80-96); MEAN PLT VOLUME 8.7 fl (7.5-11.1); PLATELET COUNT 126 10^3/uL (134-434); RBC 4.13 M/mm3 (4.00-5.60); RDW 15.1 % (11.9-15.9); WHITE BLOOD COUNT 2.3 K/mm3 (4.0-10.0)
[2022-08-16 12:43] LABS: BLOOD UREA NITROGEN 15.4 mg/dL (7-18); CALCIUM 8.4 mg/dL (8.5-10.1)
[2022-08-16 12:46] LABS: CREATININE 0.8 mg/dL (0.55-1.3)
[2022-08-16 12:48] LABS: BILIRUBIN,TOTAL 0.9 mg/dL (0.2-1); TOT PROT 5.9 g/dl (6.4-8.2)
[2022-08-16] MEDS ORDERED: QUEtiapine FUMARATE 100 MG TABLET (FP) PO SCH (22:00)
[2022-08-16] MEDS: THIAMINE HCL 100 MG TABLET (FP) PO SCH (22:10)
[2022-08-16] MEDS: ROSUVASTATIN CA 20 MG TABLET PO SCH (23:21)
[2022-08-17] MEDS: chlordiazePOXIDE HCL 25 MG CAPSULE PO SCH ×2 (05:56→10:04)
[2022-08-17 08:08] VITALS: RESP 18
[2022-08-17 09:38] VITALS: BP 117/76; PULSE 83; TEMP 97.6
[2022-08-17] MEDS: PRENATAL VITAMINS W/ FOLIC ACID TABLET (FP) PO SCH (10:02)
[2022-08-17] MEDS: METHOCARBAMOL 500 MG TABLET PO PRN (10:03)
[2022-08-17] MEDS: PANTOPRAZOLE 40 MG TABLET PO SCH (10:03)
[2022-08-17] MEDS: levETIRAcetam 250 MG TABLET PO SCH (10:03)
[2022-08-17] MEDS: NICOTINE 10 MG CARTRIDGE (INHALER) IH PRN (10:06)
[2022-08-17] MEDS: BUDESONIDE/FORMETEROL FUMARATE 160/4.5 mcg INHALER IH SCH (10:06)
[2022-08-17] MEDS: NICOTINE 21 MG/24 HOURS TOPICAL PATCH TD SCH (10:06)
[2022-08-18] MEDS ORDERED: chlordiazePOXIDE HCL 10 MG CAPSULE PO SCH (05:00)
[2022-08-19] MEDS ORDERED: chlordiazePOXIDE HCL 10 MG CAPSULE PO SCH (05:00)
[2022-08-20] MEDS ORDERED: chlordiazePOXIDE HCL 10 MG CAPSULE PO ONE (05:00)
== END 2022-08-17 10:55 | disposition left against medical advice (07) | DRG 770 ==
LOC: YASAS 12:31 → Y6N 15:25
PROVIDERS: ADMIT Allergy & Immunology; ATTEND Surgery
PROC: HZ2ZZZZ Detoxification Services for Substance Abuse Treatment (ICD-10-PCS; principal; 2022-08-15)
DX: F10.230 Alcohol dependence with withdrawal, uncomplicated (principal); F14.20 Cocaine dependence, uncomplicated; F12.20 Cannabis dependence, uncomplicated; F17.210 Nicotine dependence, cigarettes, uncomplicated; F10.280 Alcohol dependence with alcohol-induced anxiety disorder; F10.282 Alcohol dependence with alcohol-induced sleep disorder; F10.24 Alcohol dependence with alcohol-induced mood disorder; F25.9 Schizoaffective disorder, unspecified; J44.9 Chronic obstructive pulmonary disease, unspecified; J45.20 Mild intermittent asthma, uncomplicated; G40.909 Epilepsy, unspecified, not intractable, without status epilepticus; M54.50 Low back pain, unspecified; G89.29 Other chronic pain; Z62.810 Personal history of physical and sexual abuse in childhood; Z89.012 Acquired absence of left thumb; Z86.19 Personal history of other infectious and parasitic diseases; Z91.81 History of falling; Z85.89 Personal history of malignant neoplasm of other organs and systems
CPT/HCPCS: 36415; 80053; 85027; 86780; C9803-CS; U0003; U0005

== ENCOUNTER 2022-12-29 12:42 | Inpatient (IN) | payer OTHER ==
[2022-12-29 13:15] VITALS: BMI 27.8
[2022-12-29] MEDS ORDERED: guaiFENesin 600 MG TABLET.ER (FP) PO PRN (14:14)
[2022-12-29] MEDS ORDERED: METHOCARBAMOL 500 MG TABLET PO PRN (14:14)
[2022-12-29] MEDS ORDERED: BENZOCAINE/MENTHOL (CHLORASEPTIC ) LOZENGE MM PRN (14:14)
[2022-12-29] MEDS ORDERED: BENZONATATE 200 MG CAPSULE PO PRN (14:14)
[2022-12-29] MEDS ORDERED: DICYCLOMINE HCL 10 MG CAPSULE PO PRN (14:14)
[2022-12-29] MEDS ORDERED: hydrOXYzine PAMOATE 25 MG CAPSULE (FP) PO PRN (14:14)
[2022-12-29] MEDS ORDERED: LOPERAMIDE HCL 2 MG CAPSULE PO PRN (14:14)
[2022-12-29] MEDS ORDERED: BISMUTH SUBSALICYLATE 524 MG/30 ML PO PRN (14:14)
[2022-12-29] MEDS ORDERED: MAGNESIUM HYDROX 2400MG/30ML ORAL SUSPENSION 30 ML CUP PO PRN (14:14)
[2022-12-29] MEDS ORDERED: LORazepam 1 MG TABLET PO PRN (14:14)
[2022-12-29] MEDS ORDERED: ACETAMINOPHEN 325 MG TABLET (FP) PO PRN (14:14)
[2022-12-29] MEDS ORDERED: NALOXONE HCL (KLOXXADO) 8 MG SPRAY NS PRN (14:14)
[2022-12-29] MEDS ORDERED: IBUPROFEN 400 MG TABLET (FP) PO PRN (14:14)
[2022-12-29] MEDS ORDERED: NALOXONE HCL 0.4 MG/ML VIAL IM PRN (14:14)
[2022-12-29] MEDS ORDERED: IBUPROFEN 600 MG TABLET (FP) PO PRN (14:14)
[2022-12-29] MEDS ORDERED: NICOTINE 10 MG CARTRIDGE (INHALER) IH PRN (14:14)
[2022-12-29] MEDS ORDERED: MAG HYDROX/AL HYDROX/SIMETH 30 ML UNIT-DOSE CUP PO PRN (14:14)
[2022-12-29] MEDS ORDERED: ONDANSETRON *ODT* 4 MG TABLET SL PRN (14:14)
[2022-12-29] MEDS ORDERED: POLYETHYLENE GLYCOL (HEALTHYLAX) 3350 17 GM PACKET PO PRN (14:14)
[2022-12-29] MEDS ORDERED: ALBUTEROL SO4 HFA INHALER IH PRN (14:18)
[2022-12-29] MEDS ORDERED: LORazepam 2 MG TABLET ONE (14:24)
[2022-12-29] MEDS ORDERED: LORazepam 2 MG TABLET PO ONE (14:30)
[2022-12-29] MEDS ORDERED: NICOTINE 21 MG/24 HOURS TOPICAL PATCH ONE (15:18)
[2022-12-29] MEDS ORDERED: PRENATAL VITAMINS W/ FOLIC ACID TABLET (FP) PO ONE (15:18)
[2022-12-29] MEDS: NICOTINE 21 MG/24 HOURS TOPICAL PATCH TD SCH (15:25)
[2022-12-29] MEDS: PRENATAL VITAMINS W/ FOLIC ACID TABLET (FP) PO SCH (15:25)
[2022-12-29 17:50] LABS: HEMATOCRIT 39.6 % (35.4-49); HEMOGLOBIN 13.6 GM/dL (11.7-16.9); MCH 32.5 pg (25.7-33.7); MCHC 34.2 g/dl (32.0-35.9); MEAN CELL VOLUME 94.9 fl (80-96); MEAN PLT VOLUME 8.6 fl (7.5-11.1); PLATELET COUNT 201 10^3/uL (134-434); RBC 4.17 M/mm3 (4.00-5.60); RDW 14.5 % (11.9-15.9); WHITE BLOOD COUNT 5.9 K/mm3 (4.0-10.0)
[2022-12-29 17:53] LABS: CALCIUM 9.5 mg/dL (8.5-10.1)
[2022-12-29 17:54] LABS: ALBUMIN 3.6 g/dl (3.4-5.0); BLOOD UREA NITROGEN 19.2 mg/dL (7-18)
[2022-12-29 17:58] LABS: BILIRUBIN,TOTAL 0.6 mg/dL (0.2-1)
[2022-12-29] MEDS: PANTOPRAZOLE 40 MG TABLET PO SCH (18:28)
[2022-12-29] MEDS: LORazepam 2 MG TABLET PO SCH ×2 (18:28→22:19)
[2022-12-29] MEDS ORDERED: MELATONIN 5 MG TABLETS PO SCH (22:00)
[2022-12-29] MEDS ORDERED: ROSUVASTATIN CA 20 MG TABLET PO SCH (22:00)
[2022-12-29] MEDS ORDERED: THIAMINE HCL 100 MG TABLET (FP) PO SCH (22:00)
[2022-12-29] MEDS ORDERED: QUEtiapine FUMARATE 50 MG TABLET PO SCH (22:00)
[2022-12-29] MEDS: levETIRAcetam 250 MG TABLET PO SCH (22:19)
[2022-12-29] MEDS: BUDESONIDE/FORMETEROL FUMARATE 160/4.5 mcg INHALER IH SCH (22:19)
[2022-12-30] MEDS: LORazepam 2 MG TABLET PO SCH ×2 (05:48→10:46)
[2022-12-30] MEDS: PANTOPRAZOLE 40 MG TABLET PO SCH (06:26)
[2022-12-30] MEDS: levETIRAcetam 250 MG TABLET PO SCH (10:45)
[2022-12-30] MEDS: PRENATAL VITAMINS W/ FOLIC ACID TABLET (FP) PO SCH (10:45)
[2022-12-30] MEDS: BUDESONIDE/FORMETEROL FUMARATE 160/4.5 mcg INHALER IH SCH (10:45)
[2022-12-30] MEDS: NICOTINE 21 MG/24 HOURS TOPICAL PATCH TD SCH (10:46)
[2022-12-30 13:02] VITALS: PULSE 63; RESP 17; TEMP 98.2
[2022-12-30] MEDS ORDERED: LACTULOSE 20 GM/30 ML UDC (FOR ORAL USE ONLY) PO SCH (14:00)
[2022-12-30 14:10] VITALS: BP 122/62
[2022-12-31] MEDS ORDERED: LORazepam 1 MG TABLET PO SCH (05:00)
[2023-01-01] MEDS ORDERED: LORazepam 0.5 MG TABLET PO PRN
[2023-01-01] MEDS ORDERED: LORazepam 0.5 MG TABLET PO SCH (05:00)
[2023-01-02] MEDS ORDERED: LORazepam 0.5 MG TABLET PO ONE (05:00)
== END 2022-12-30 15:50 | disposition left against medical advice (07) | DRG 770 ==
LOC: YASAS 12:42 → Y3N 15:22
PROVIDERS: ADMIT Allergy & Immunology; ATTEND Surgery
PROC: HZ2ZZZZ Detoxification Services for Substance Abuse Treatment (ICD-10-PCS; principal; 2022-12-29)
DX: F10.230 Alcohol dependence with withdrawal, uncomplicated (principal); F12.20 Cannabis dependence, uncomplicated; F17.210 Nicotine dependence, cigarettes, uncomplicated; F31.9 Bipolar disorder, unspecified; F20.0 Paranoid schizophrenia; F41.9 Anxiety disorder, unspecified; F19.24 Other psychoactive substance dependence with psychoactive substance-induced mood disorder; E78.5 Hyperlipidemia, unspecified; G40.909 Epilepsy, unspecified, not intractable, without status epilepticus; R79.9 Abnormal finding of blood chemistry, unspecified; Z62.810 Personal history of physical and sexual abuse in childhood; Z59.00 Homelessness unspecified; Z88.0 Allergy status to penicillin
CPT/HCPCS: 36415; 80053; 82140; 85027; 86780; 87811; C9803-CS; U0003; U0005

== ENCOUNTER 2023-02-04 22:17 | Inpatient (IN) | payer OTHER ==
[2023-02-04 22:50] VITALS: BMI 28.0
[2023-02-04] MEDS ORDERED: ALBUTEROL SO4 HFA INHALER IH PRN (23:21)
[2023-02-04] MEDS ORDERED: NALOXONE HCL (KLOXXADO) 8 MG SPRAY NS PRN (23:22)
[2023-02-04] MEDS ORDERED: LOPERAMIDE HCL 2 MG CAPSULE PO PRN (23:22)
[2023-02-04] MEDS ORDERED: MAG HYDROX/AL HYDROX/SIMETH 30 ML UNIT-DOSE CUP PO PRN (23:22)
[2023-02-04] MEDS ORDERED: NALOXONE HCL 0.4 MG/ML VIAL IM PRN (23:22)
[2023-02-04] MEDS ORDERED: ACETAMINOPHEN 325 MG TABLET (FP) PO PRN (23:22)
[2023-02-04] MEDS ORDERED: NICOTINE POLACRILEX 4 MG GUM BUC PRN (23:22)
[2023-02-04] MEDS ORDERED: MAGNESIUM HYDROX 2400MG/30ML ORAL SUSPENSION 30 ML CUP PO PRN (23:22)
[2023-02-04] MEDS ORDERED: BENZOCAINE/MENTHOL (CHLORASEPTIC ) LOZENGE MM PRN (23:22)
[2023-02-04] MEDS ORDERED: POLYETHYLENE GLYCOL (HEALTHYLAX) 3350 17 GM PACKET PO PRN (23:22)
[2023-02-04] MEDS ORDERED: IBUPROFEN 400 MG TABLET (FP) PO PRN (23:22)
[2023-02-04] MEDS ORDERED: BENZONATATE 200 MG CAPSULE PO PRN (23:22)
[2023-02-04] MEDS ORDERED: chlordiazePOXIDE HCL 25 MG CAPSULE PO PRN (23:22)
[2023-02-04] MEDS ORDERED: BISMUTH SUBSALICYLATE 524 MG/30 ML PO PRN (23:22)
[2023-02-04] MEDS ORDERED: DICYCLOMINE HCL 10 MG CAPSULE PO PRN (23:22)
[2023-02-04] MEDS ORDERED: IBUPROFEN 600 MG TABLET (FP) PO PRN (23:22)
[2023-02-04] MEDS ORDERED: ONDANSETRON *ODT* 4 MG TABLET SL PRN (23:22)
[2023-02-04] MEDS ORDERED: guaiFENesin 600 MG TABLET.ER (FP) PO PRN (23:22)
[2023-02-04] MEDS ORDERED: levETIRAcetam 500 MG TABLET (FP) PO ONE (23:31)
[2023-02-04] MEDS: chlordiazePOXIDE HCL 25 MG CAPSULE PO SCH (23:50)
[2023-02-05] MEDS: chlordiazePOXIDE HCL 25 MG CAPSULE PO SCH ×4 (05:45→22:00)
[2023-02-05 09:54] LABS: POTASSIUM 3.4 mmol/L (3.5-5.1)
[2023-02-05 09:57] LABS: ALBUMIN 3.1 g/dl (3.4-5.0); CALCIUM 8.3 mg/dL (8.5-10.1)
[2023-02-05 09:58] LABS: BLOOD UREA NITROGEN 18.9 mg/dL (7-18)
[2023-02-05 10:01] LABS: CREATININE 0.9 mg/dL (0.55-1.3)
[2023-02-05 10:02] LABS: BILIRUBIN,TOTAL 0.9 mg/dL (0.2-1); TOT PROT 5.9 g/dl (6.4-8.2)
[2023-02-05 10:08] LABS: HEMATOCRIT 38.2 % (35.4-49); MCH 32.9 pg (25.7-33.7); MCHC 34.1 g/dl (32.0-35.9); MEAN CELL VOLUME 96.4 fl (80-96); MEAN PLT VOLUME 8.8 fl (7.5-11.1); PLATELET COUNT 95 10^3/uL (134-434); RBC 3.96 M/mm3 (4.00-5.60); RDW 15.8 % (11.9-15.9); WHITE BLOOD COUNT 2.3 K/mm3 (4.0-10.0)
[2023-02-05] MEDS: levETIRAcetam 500 MG TABLET (FP) PO SCH ×2 (10:32→22:00)
[2023-02-05] MEDS: PANTOPRAZOLE 40 MG TABLET PO SCH (10:33)
[2023-02-05] MEDS: PRENATAL VITAMINS W/ FOLIC ACID TABLET (FP) PO SCH (10:33)
[2023-02-05] MEDS: BUDESONIDE/FORMETEROL FUMARATE 160/4.5 mcg INHALER IH SCH ×2 (10:36→22:01)
[2023-02-05] MEDS: NICOTINE 21 MG/24 HOURS TOPICAL PATCH TD SCH (10:37)
[2023-02-05] MEDS: MELATONIN 5 MG TABLETS PO SCH (22:00)
[2023-02-05] MEDS: POTASSIUM CHLORIDE ORAL LIQUID 20 MEQ/15 ML PO SCH (22:00)
[2023-02-05] MEDS: THIAMINE HCL 100 MG TABLET (FP) PO SCH (22:00)
[2023-02-05] MEDS: QUEtiapine FUMARATE 50 MG TABLET PO SCH (22:00)
[2023-02-06] MEDS: chlordiazePOXIDE HCL 25 MG CAPSULE PO SCH ×4 (05:29→22:30)
[2023-02-06] MEDS: PRENATAL VITAMINS W/ FOLIC ACID TABLET (FP) PO SCH (10:16)
[2023-02-06] MEDS: levETIRAcetam 500 MG TABLET (FP) PO SCH ×2 (10:16→22:31)
[2023-02-06] MEDS: POTASSIUM CHLORIDE ORAL LIQUID 20 MEQ/15 ML PO SCH ×2 (10:16→22:29)
[2023-02-06] MEDS: PANTOPRAZOLE 40 MG TABLET PO SCH (10:16)
[2023-02-06] MEDS: BUDESONIDE/FORMETEROL FUMARATE 160/4.5 mcg INHALER IH SCH ×2 (10:25→22:31)
[2023-02-06] MEDS: NICOTINE 21 MG/24 HOURS TOPICAL PATCH TD SCH (10:25)
[2023-02-06] MEDS: QUEtiapine FUMARATE 50 MG TABLET PO SCH (22:29)
[2023-02-06] MEDS: MELATONIN 5 MG TABLETS PO SCH (22:31)
[2023-02-06] MEDS: THIAMINE HCL 100 MG TABLET (FP) PO SCH (22:32)
[2023-02-07] MEDS ORDERED: chlordiazePOXIDE HCL 10 MG CAPSULE PO PRN
[2023-02-07] MEDS: chlordiazePOXIDE HCL 10 MG CAPSULE PO SCH ×4 (05:43→22:01)
[2023-02-07] MEDS: NICOTINE 21 MG/24 HOURS TOPICAL PATCH TD SCH (10:20)
[2023-02-07] MEDS: PRENATAL VITAMINS W/ FOLIC ACID TABLET (FP) PO SCH (10:20)
[2023-02-07] MEDS: levETIRAcetam 500 MG TABLET (FP) PO SCH ×2 (10:21→22:02)
[2023-02-07] MEDS: BUDESONIDE/FORMETEROL FUMARATE 160/4.5 mcg INHALER IH SCH ×2 (10:21→22:50)
[2023-02-07] MEDS: PANTOPRAZOLE 40 MG TABLET PO SCH (10:21)
[2023-02-07 11:39] LABS: HEMATOCRIT 39.7 % (35.4-49); HEMOGLOBIN 13.5 GM/dL (11.7-16.9); MCH 33.1 pg (25.7-33.7); MCHC 34.1 g/dl (32.0-35.9); MEAN CELL VOLUME 97.1 fl (80-96); MEAN PLT VOLUME 9.3 fl (7.5-11.1); PLATELET COUNT 99 10^3/uL (134-434); RBC 4.09 M/mm3 (4.00-5.60); RDW 15.9 % (11.9-15.9); WHITE BLOOD COUNT 3.4 K/mm3 (4.0-10.0)
[2023-02-07] MEDS: hydrOXYzine PAMOATE 25 MG CAPSULE (FP) PO PRN (19:39)
[2023-02-07 21:31] LABS: PH,URINE 6.5 (5.0-8.0); URINE APPEARANCE CLEAR; URINE BILIRUBIN NEGATIVE (NEGATIVE); URINE COLOR YELLOW; URINE GLUCOSE (UA) NEGATIVE (NEGATIVE); URINE KETONE NEGATIVE (NEGATIVE); URINE LEUK ESTERASE NEGATIVE (NEGATIVE); URINE NITRITE NEGATIVE (NEGATIVE); URINE PROTEIN NEGATIVE (NEGATIVE); URINE UROBILINOGEN 0.2 mg/dL (0.2-1.0)
[2023-02-07] MEDS: QUEtiapine FUMARATE 50 MG TABLET PO SCH (22:01)
[2023-02-07] MEDS: THIAMINE HCL 100 MG TABLET (FP) PO SCH (22:01)
[2023-02-07] MEDS: MELATONIN 5 MG TABLETS PO SCH (22:02)
[2023-02-08] MEDS: chlordiazePOXIDE HCL 10 MG CAPSULE PO SCH ×2 (05:31→17:22)
[2023-02-08] MEDS: PRENATAL VITAMINS W/ FOLIC ACID TABLET (FP) PO SCH (10:13)
[2023-02-08] MEDS: levETIRAcetam 500 MG TABLET (FP) PO SCH ×2 (10:13→22:11)
[2023-02-08] MEDS: PANTOPRAZOLE 40 MG TABLET PO SCH (10:14)
[2023-02-08] MEDS: hydrOXYzine PAMOATE 25 MG CAPSULE (FP) PO PRN ×2 (10:14→17:22)
[2023-02-08] MEDS: NICOTINE 21 MG/24 HOURS TOPICAL PATCH TD SCH (10:14)
[2023-02-08] MEDS: BUDESONIDE/FORMETEROL FUMARATE 160/4.5 mcg INHALER IH SCH ×2 (10:14→22:12)
[2023-02-08] MEDS: QUEtiapine FUMARATE 50 MG TABLET PO SCH (22:11)
[2023-02-08] MEDS: THIAMINE HCL 100 MG TABLET (FP) PO SCH (22:11)
[2023-02-08] MEDS: MELATONIN 5 MG TABLETS PO SCH (22:12)
[2023-02-09] MEDS ORDERED: chlordiazePOXIDE HCL 10 MG CAPSULE PO ONE (05:00)
[2023-02-09 06:39] VITALS: BP 106/67; PULSE 82; RESP 17; TEMP 97.1
[2023-02-09] MEDS: levETIRAcetam 500 MG TABLET (FP) PO SCH (11:11)
[2023-02-09] MEDS: PRENATAL VITAMINS W/ FOLIC ACID TABLET (FP) PO SCH (11:11)
[2023-02-09] MEDS: PANTOPRAZOLE 40 MG TABLET PO SCH (11:11)
[2023-02-09] MEDS: NICOTINE 21 MG/24 HOURS TOPICAL PATCH TD SCH (11:11)
[2023-02-09] MEDS: BUDESONIDE/FORMETEROL FUMARATE 160/4.5 mcg INHALER IH SCH (11:12)
== END 2023-02-09 09:10 | disposition home or self-care (01) | DRG 775 ==
LOC: YASAS 22:17 → Y6N 23:32
PROVIDERS: ADMIT Allergy & Immunology; ATTEND Surgery
PROC: HZ2ZZZZ Detoxification Services for Substance Abuse Treatment (ICD-10-PCS; principal; 2023-02-04)
DX: F10.230 Alcohol dependence with withdrawal, uncomplicated (principal); F12.20 Cannabis dependence, uncomplicated; F17.210 Nicotine dependence, cigarettes, uncomplicated; F25.9 Schizoaffective disorder, unspecified; F19.282 Other psychoactive substance dependence with psychoactive substance-induced sleep disorder; F19.24 Other psychoactive substance dependence with psychoactive substance-induced mood disorder; G40.909 Epilepsy, unspecified, not intractable, without status epilepticus; J43.9 Emphysema, unspecified; M54.50 Low back pain, unspecified; G89.29 Other chronic pain; Z62.810 Personal history of physical and sexual abuse in childhood; R26.89 Other abnormalities of gait and mobility; Z99.89 Dependence on other enabling machines and devices; Z91.148 Patient's other noncompliance with medication regimen for other reason; Z88.0 Allergy status to penicillin; Z56.0 Unemployment, unspecified; Z59.00 Homelessness unspecified
CPT/HCPCS: 36415; 71045-TC-FY; 80053; 80177; 81003; 84132; 85027; 86780; 93005; 93010; C9803-CS; U0003; U0005

== ENCOUNTER 2024-12-31 03:32 | Inpatient (IN) | payer OTHER ==
[2024-12-31 04:15] VITALS: BMI 28.3
[2024-12-31] MEDS ORDERED: DICYCLOMINE HCL 10 MG CAPSULE PO PRN (05:03)
[2024-12-31] MEDS ORDERED: NALOXONE (NARCAN) HCL 4 MG/0.1 ML SPRAY NS PRN (05:03)
[2024-12-31] MEDS ORDERED: MAGNESIUM HYDROX 2400MG/30ML ORAL SUSPENSION 30 ML CUP PO PRN (05:03)
[2024-12-31] MEDS ORDERED: NICOTINE POLACRILEX 4 MG GUM BUC PRN (05:03)
[2024-12-31] MEDS ORDERED: BENZOCAINE/MENTHOL (CHLORASEPTIC ) LOZENGE MM PRN (05:03)
[2024-12-31] MEDS ORDERED: guaiFENesin 600 MG TABLET.ER (FP) PO PRN (05:03)
[2024-12-31] MEDS ORDERED: BENZONATATE 200 MG CAPSULE PO PRN (05:03)
[2024-12-31] MEDS ORDERED: BISMUTH SUBSALICYLATE 524 MG/30 ML PO PRN (05:03)
[2024-12-31] MEDS ORDERED: POLYETHYLENE GLYCOL (HEALTHYLAX) 3350 17 GM PACKET PO PRN (05:03)
[2024-12-31] MEDS ORDERED: ACETAMINOPHEN 325 MG TABLET (FP) PO PRN (05:03)
[2024-12-31] MEDS ORDERED: MAG HYDROX/AL HYDROX/SIMETH 30 ML UNIT-DOSE CUP PO PRN (05:03)
[2024-12-31] MEDS ORDERED: LOPERAMIDE HCL 2 MG CAPSULE PO PRN (05:03)
[2024-12-31] MEDS ORDERED: IBUPROFEN 400 MG TABLET (FP) PO PRN (05:03)
[2024-12-31] MEDS ORDERED: ONDANSETRON *ODT* 4 MG TABLET SL PRN (05:03)
[2024-12-31] MEDS ORDERED: diazePAM 5 MG TABLET PO PRN (09:29)
[2024-12-31] MEDS ORDERED: PANTOPRAZOLE 40 MG TABLET PO SCH (10:00)
[2024-12-31] MEDS: DIVALPROEX SODIUM 250 MG TABLET E.C. PO SCH (10:10)
[2024-12-31] MEDS: diazePAM 5 MG TABLET PO SCH (10:11)
[2024-12-31] MEDS: levETIRAcetam 250 MG TABLET PO SCH (10:11)
[2024-12-31] MEDS: PRENATAL VITAMINS W/ FOLIC ACID TABLET (FP) PO SCH (10:11)
[2024-12-31] MEDS: NICOTINE 21 MG/24 HOURS TOPICAL PATCH TD SCH (10:13)
[2024-12-31] MEDS: IBUPROFEN 600 MG TABLET (FP) PO PRN (13:23)
[2024-12-31] MEDS: MELATONIN 5 MG TABLETS PO SCH (22:58)
[2024-12-31] MEDS: THIAMINE 100 MG TABLET PO SCH (22:59)
[2025-01-01] MEDS: PANTOPRAZOLE 40 MG TABLET PO SCH (06:15)
[2025-01-01 08:49] VITALS: BP 107/66; PULSE 60; RESP 16; TEMP 97.9
[2025-01-01 12:13] LABS: HEMATOCRIT 40.7 % (40.1-51.0); HEMOGLOBIN 13.1 g/dL (13.7-17.5); MCHC 32.2 g/dl (32.3-36.5); MEAN PLT VOLUME 11.2 fl (9.4-12.4); PLATELET COUNT 199 x10^3/uL (163-337); POTASSIUM 3.7 mmol/L (3.5-5.1); RDW 13.7 % (12.2-16.4)
[2025-01-01 12:18] LABS: BLOOD UREA NITROGEN 12.7 mg/dL (7-18)
[2025-01-01 12:20] LABS: ALBUMIN 3.8 g/dl (3.4-5.0)
[2025-01-01 12:24] LABS: CREATININE 0.8 mg/dL (0.55-1.3)
[2025-01-01 12:25] LABS: BILIRUBIN,TOTAL 0.5 mg/dL (0.2-1); TOT PROT 6.8 g/dl (6.4-8.2)
[2025-01-02] MEDS ORDERED: diazePAM 5 MG TABLET PO SCH (06:00)
[2025-01-03] MEDS ORDERED: diazePAM 5 MG TABLET PO SCH (06:00)
[2025-01-04] MEDS ORDERED: diazePAM 5 MG TABLET PO ONE (06:00)
== END 2025-01-01 10:34 | disposition left against medical advice (07) | DRG 770 ==
LOC: YASAS 03:32 → Y6N 05:45
PROVIDERS: ADMIT Allergy & Immunology; ATTEND Allergy & Immunology
PROC: HZ2ZZZZ Detoxification Services for Substance Abuse Treatment (ICD-10-PCS; principal; 2024-12-31)
DX: F10.20 Alcohol dependence, uncomplicated (principal); F12.20 Cannabis dependence, uncomplicated; F17.210 Nicotine dependence, cigarettes, uncomplicated; F31.9 Bipolar disorder, unspecified; F25.9 Schizoaffective disorder, unspecified; F41.9 Anxiety disorder, unspecified; E78.5 Hyperlipidemia, unspecified; J44.9 Chronic obstructive pulmonary disease, unspecified; G40.909 Epilepsy, unspecified, not intractable, without status epilepticus; Z86.19 Personal history of other infectious and parasitic diseases; Z86.11 Personal history of tuberculosis; Z59.00 Homelessness unspecified; Z88.0 Allergy status to penicillin
CPT/HCPCS: 36415; 80053; 80164; 80305; 80307; 82140; 85027; 86780; 93005; 93010